=== PATIENT | male | born 1960 | race Caucasian/White ===

== ENCOUNTER 2017-02-01 07:32 | Inpatient (IN) | payer OTHER ==
[~2017-02-01] VITALS: Ht 172.7 cm; Wt 100.4 kg
[2017-02-01] VITALS (44 sets, daily range): BP systolic 115–162; BP diastolic 81–115; PULSE 58–112; TEMP 36.8–37; O2SAT 87–98; Ht 172.7 cm; Wt 100.4 kg
[2017-02-01] MEDS ORDERED: IBUP-103 PO (07:50)
[2017-02-01] MEDS ORDERED: NAPR1TAB48 PO (07:50)
[2017-02-01 08:03] LABS: HEMATOCRIT 44.3 % (42-52); MEAN CELL VOLUME 86.4 fL (80-100); MEAN CORPUSCULAR HEMOGLOBIN 29.8 pg (25-34); MEAN CORPUSCULAR HGB CONC 34.5 g/dl (32-36); MEAN PLATELET VOLUME 11.8 fL (7.4-10.4); PLATELET COUNT 179 K/uL (130-400); RED BLOOD COUNT 5.13 M/uL (4.7-6.1); WHITE BLOOD COUNT 7.72 K/uL (4.8-10.8)
[2017-02-01] MEDS: NITROGLYCERIN 0.4 MG SL PER TAB CHARGE SL PRN ×3 (08:07→08:39)
[2017-02-01] MEDS: METOPROLOL TARTRATE 1 MG/ML VIAL IV STA ×2 (08:09→08:23)
--- NOTE | 2017-02-01 08:17 | EMERGENCY ROOM VISIT NOTE ---
History Report prepared by Hailey: Naa Wilkerson Under the Supervision of: Dr. Yoni Estes M.D. First contact with patient: 07:53 Chief Complaint: CHEST PAIN Stated Complaint: CHEST AND BACK PAIN History of Present Illness The patient is a 56 year old male who presents to the Emergency Room with complaints of constant chest pain for the past 3.5 hours. He woke up early this morning due to central chest pain. His pain radiates straight through into his back, bilateral shoulders, bilateral arms, and up into his neck. He states that his right arm pain is greater than the left. The patient states that he has had similar pain recently and thought that it was due to some back issues he has been dealing with. Typically his pain resolves with Motrin. He took Motrin this morning but states that his pain continued to worsen. He has never experienced the pain radiating up into his neck before. Today he also developed nausea and vomiting secondary to pain. He feels short of breath secondary to pain as well. The patient describes his pain as a pressure in his chest, and he rates his current pain as a 9/10 in severity. He just saw his PCP two days ago and was started on new medication for hypertension and hyperlipidemia. He just started this medication yesterday. The patient denies abdominal pain. He denies any personal history of cardiac or lung problems. He reports a 15 pound weight gain over the past year. Just started on bp and cholesterol meds. no hx of cardiac or lung problems. 15 lb weight gain over the past year. no abdominal pain. 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 Please see Additional Medical History Sheet. Past Medical & Surgical Medical Problems: (1) Acute TX (2) Hyperlipidemia (3) Hypertension (4) NSTEMI (non-ST elevated myocardial infarction) (5) Presence of stent in left circumflex coronary artery (6) Tobacco abuse Surgical Problems: (1) Status post cardiac catheterization Family History No pertinent history stated. Social History Smoking Status: Current Every Day Smoker Marital Status: Housing Status: lives with family Occupation Status: employed Current/Historical Medications Scheduled Ibuprofen Tab (Advil), 400 MG PO UD Naproxen (Naprosyn), 250 MG PO UD Valsartan (Diovan), 80 MG PO DAILY Allergies Coded Allergies: Penicillins (Unverified Allergy, Intermediate, HIVES, 02/01/17) Lactose Intolerance (GI) (Verified Allergy, Mild, gi upset, 02/01/17) Physical Exam Vital Signs Date Time Temp Pulse Resp B/P Pulse Ox O2 Delivery O2 Flow Rate FiO2 02/01/17 11:00 68 16 142/88 96 Room Air 02/01/17 10:55 66 16 138/92 96 Room Air 02/01/17 10:45 66 16 134/97 96 Room Air 02/01/17 08:55 85 20 151/95 95 Nasal Cannula 3.0 02/01/17 08:45 95 Nasal Cannula 3.0 02/01/17 08:41 76 18 161/105 94 Nasal Cannula 3.0 02/01/17 08:39 82 16 151/113 93 Nasal Cannula 3.0 02/01/17 08:31 68 18 156/116 95 Nasal Cannula 3.0 02/01/17 08:26 71 14 158/118 92 Nasal Cannula 3.0 02/01/17 08:23 75 138/116 02/01/17 08:19 83 18 168/110 93 Nasal Cannula 3.0 02/01/17 08:13 82 18 174/117 88 Room Air 02/01/17 08:13 97 Nasal Cannula 3.0 02/01/17 08:00 96 Room Air 02/01/17 07:49 93 02/01/17 07:40 96 Room Air 02/01/17 07:34 96 20 195/124 96 Room Air Physical Exam GENERAL: Patient awake, alert, oriented x 3. Patient follows commands. Patient does not appear toxic. Patient is adequately hydrated and well- nourished. SKIN: No erythema, pallor, cyanosis or rash HEENT: Normal head, pupils equal, reactive to light and accommodation. LUNGS: Clear to auscultation. No wheezes, no rales, no rhonchi. HEART: No murmurs. No gallops. No rubs. Peripheral pulses intact strong and equal bilaterally. ABDOMEN: No masses, no rebound, no hepatomegaly or splenomegaly. EXTREMITIES: No signs of trauma. No pedal or pretibial edema. No calf or thigh tenderness. NEUROLOGIC: Cranial nerves II-XII within normal limits. No gross motor sensory function deficits. Medical Decision & Procedures ER Provider Diagnostic Interpretation: Radiology results as stated below per my review and radiologist interpretation: CHEST ONE VIEW PORTABLE CLINICAL HISTORY: chest pain pain COMPARISON STUDY: None FINDINGS: Moderate cardiomegaly. Prominent pulmonary vasculature. Diaphragms smooth. Calcific angles are sharp. IMPRESSION: Mild congestive failure Electronically signed by: Francisco Fuentes M.D. 02/01/2017 8:47 AM Dictated Date/Time: 02/01/2017 8:46 AM Laboratory Results Test 02/01/17 08:06 02/01/17 08:50 02/01/17 09:27 Bedside Troponin I 1.340 ng/ml (0-0.045) Prothrombin Time 10.7 SECONDS (9.0-12.0) Prothromb Time International Ratio 1.0 (0.9-1.1) Activated Partial Thromboplast Time 29.1 SECONDS (21.0-31.0) Partial Thromboplastin Ratio 1.1 Kaolin Activated Coagulation Time 291 SECONDS (94-140) Date/Time Source Procedure Growth Status 02/01/17 00:00 Nasal MRSA DNA Surveillance Screen - Final Specimen Negative for MRSA by DNA Probe Complete Laboratory results as stated above per my review. Medications Administered Medications (Trade) Dose Ordered Sig/Adrianna Route Start Time Stop Time Status Last Admin Dose Admin Nitroglycerin (Nitrostat Tab) 0.4 mg Q5M PRN SL 02/01/17 08:00 02/01/17 11:23 DC 02/01/17 08:39 0.4 MG Metoprolol Tartrate (Lopressor Iv) 15 mg NOW STAT IV 02/01/17 08:02 02/01/17 08:04 DC 02/01/17 08:23 15 MG Aspirin (Aspirin Chew) 324 mg NOW STAT PO 02/01/17 08:27 02/01/17 08:30 DC 02/01/17 08:38 324 MG Heparin Sodium/ Dextrose (Heparin 25,000 Unit/500ml D5W) 25,000 unit STK-MED ONCE .ROUTE 02/01/17 08:47 02/01/17 08:48 DC 02/01/17 08:55 25,000 UNIT Heparin Sodium (Porcine) (Heparin Sq 5000 Unit/0.5ml) 10,000 unit STK-MED ONCE .ROUTE 02/01/17 08:47 02/01/17 08:48 DC 02/01/17 08:52 7,000 UNIT Heparin Sodium (Porcine) (Heparin Iv Bolus) 10,000 unit STK-MED ONCE .ROUTE 02/01/17 08:58 02/01/17 08:59 DC 02/01/17 08:58 7,000 UNIT Midazolam HCl (Versed Inj) 2 mg STK-MED ONCE .ROUTE 02/01/17 08:58 02/01/17 08:59 DC 02/01/17 08:58 2 MG Fentanyl Citrate (Fentanyl Inj) 100 mcg STK-MED ONCE .ROUTE 02/01/17 08:58 02/01/17 08:59 DC 02/01/17 08:58 100 MCG Furosemide (Lasix Inj) 20 mg NOW STAT IV 02/01/17 09:10 02/01/17 09:11 DC 02/01/17 09:10 20 MG Eptifibatide (Integrilin Inj) 40 mg STK-MED ONCE IV 02/01/17 09:24 02/01/17 09:25 DC 02/01/17 09:24 40 MG Eptifibatide (Integrilin Inj) 75 mg STK-MED ONCE IV 02/01/17 09:24 02/01/17 09:25 DC 02/01/17 09:24 75 MG Atropine Sulfate (Atropine Sulfate) 1 mg STK-MED ONCE .ROUTE 02/01/17 10:29 02/01/17 10:30 DC 02/01/17 10:29 1 MG Ticagrelor (Brilinta Cap) 180 mg STK-MED ONCE PO 02/01/17 10:45 02/01/17 10:46 DC 02/01/17 10:45 180 MG ECG Indication: chest pain Rate (beats per minute): 94 Rhythm: normal sinus Findings: ST depression (in all precordial leads), no ectopy Comparison ECG Date: no prior available ED Course 0753: Past medical records reviewed. The patient was evaluated in room B10. A complete history and physical examination was performed. 0800: Nitroglycerin 0.4 mg SL - PRN 0802: Lopressor 15 mg IV 0825: At this time I spoke with Dr. Samano of [facility] cardiology. We discussed the patient's case and he will come to the ED to evaluate the patient. He advised that the patient get nitroglycerin, aspirin, and heparin. 0827: Heparin Sodium/Dextrose bolus and drip, Aspirin 324 mg PO 0830: I reassessed the patient at this time. He is doing well. I discussed the results and treatment plan with the patient. I answered all pertaining questions that he had. He expressed understanding and verbalized agreement. 0844: I spoke with Dr. Samano in the ED. He is going to take the patient to the cardiac catheterization lab. 0849: A heart alert was called in the ED. 0902: I spoke with Dr. Hutton. We discussed the patients results and treatment plan. The patient will be evaluated by the [facility] for further management. Medical Decision I considered multiple diagnoses including myocardial infarction, chest wall pain , pericarditis, myocarditis, aortic emergencies, pulmonary embolism, congestive heart failure, GI causes, and other significant cardiopulmonary disorders. The patient's history is very concerning for an acute cardiac event. Multiple labs, EKG and imaging were obtained. The patient did have some minimal ST elevation in his inferior leads and ST depressions in his corneal lesions. Troponin returned significantly elevated. I therefore discussed the case with cardiology who also evaluated the patient in the ED. The patient's blood pressure was significantly elevated and was given IV metoprolol. He was also given aspirin and nitroglycerin. The patient was heparinized. Chest x-ray revealed mild congestive failure and Lasix was ordered but the patient left the ED prior to administration of that drug. The patient was sent directly from the ED to the [facility]. Consults Time Called: 08 Consulting Physician: Dr. Samano Returned Call: 0825 At this time I spoke with Dr. Samano of [facility] cardiology. We discussed the patient's case and he will come to the ED to evaluate the patient. He advised that the patient get nitroglycerin, aspirin, and heparin. Additional Consults: Time Called: 08 Consulted Physician: Dr. Samano Returned Call: 0844 Additional Comments: I spoke with Dr. Samano in the ED. He is going to take the patient to the cardiac catheterization lab. Time Called: 0859 Consulted Physician: Dr. Hutton Returned Call: 09 Additional Comments: I spoke with Dr. Tussey. We discussed the patients results and treatment plan. The patient will be evaluated by the [facility] for further management. Impression Primary Impression: Acute myocardial infarction Critical Care I have personally spent greater than 35 minutes of critical care time in the direct management of this patient. This includes bedside care, interpretation of diagnostic studies, and testing, discussion with consultants, patient, and family members, and other required patient management activities. This 35 minutes is in excess of all separately billable procedures. Scribe Attestation The scribe's documentation has been prepared under my direction and personally reviewed by me in its entirety. I confirm that the note above accurately reflects all work, treatment, procedures, and medical decision making performed by me. Departure Information Dispostion Being Evaluated By Hospitalist Referrals No Doctor, Assigned (PCP) Patient Instructions My [facility] Problem Qualifiers Primary Impression: Acute myocardial infarction Myocardial infarction ST status: ST elevation myocardial infarction Involved coronary artery: unspecified coronary artery Qualified Codes: I21.3 - ST elevation (STEMI) myocardial infarction of unspecified site
[2017-02-01 08:19] LABS: BUN/CREATININE RATIO 12.1 (10-20); CALCIUM 9.4 mg/dl (8.5-10.1); POTASSIUM 3.5 mmol/L (3.5-5.1)
[2017-02-01] MEDS ORDERED: ASPIRIN 81 MG CHEW PO STA (08:27)
[2017-02-01] MEDS ORDERED: HEPARIN 25000 UNIT/500 ML D5W ONE (08:47)
[2017-02-01] MEDS ORDERED: HEPARIN SOD 5000 UNIT/0.5 ML CARP ONE (08:47)
--- NOTE | 2017-02-01 08:48 | DIAGNOSTIC IMAGING REPORT ---
CHEST ONE VIEW PORTABLE CLINICAL HISTORY: chest pain pain COMPARISON STUDY: None FINDINGS: Moderate cardiomegaly. Prominent pulmonary vasculature. Diaphragms smooth. Calcific angles are sharp. IMPRESSION: Mild congestive failure Electronically signed by: Francisco Fuentes M.D. 02/01/2017 8:47 AM Dictated Date/Time: 02/01/2017 8:46 AM
[2017-02-01] MEDS ORDERED: NiCARDipine HCL INJ 2.5 MG/ML 10 ML AMP ONE (08:57)
[2017-02-01] MEDS ORDERED: NITROGLYCERIN/D5W 100MCG/ML 20ML SYR ONE (08:58)
[2017-02-01] MEDS ORDERED: MIDAZOLAM HCL 1 MG/ML 2ML VIAL ONE (08:58)
[2017-02-01] MEDS ORDERED: FENTANYL CITRATE INJ 50 MCG/1 ML 2 ML VIAL ONE (08:58)
[2017-02-01] MEDS ORDERED: HEPARIN SOD (PORCINE) 1000 UNIT/ML 10 ML VIAL ONE (08:58)
[2017-02-01] MEDS ORDERED: DVN80 PO (09:01)
[2017-02-01] MEDS ORDERED: FUROSEMIDE 40 MG/4 ML VIAL IV STA (09:10)
[2017-02-01 09:24] LABS: PARTIAL THROMBOPLASTIN RATIO 1.1; PROTHROMBIN TIME (PATIENT) 10.7 SECONDS (9.0-12.0)
[2017-02-01] MEDS ORDERED: EPTIFIBATIDE 0.75 MG/ML 75MG VIAL IV ONE (09:24)
[2017-02-01] MEDS ORDERED: EPTIFIBATIDE 2 MG/ML 10 ML VIAL IV ONE (09:24)
[2017-02-01] MEDS ORDERED: ATROPINE SULFATE 0.1 MG/ML 10 ML SYR ONE (10:29)
[2017-02-01] MEDS ORDERED: TICAGRELOR 90 MG TAB PO ONE (10:45)
[2017-02-01] MEDS ORDERED: ONDANSETRON INJ 2 MG/ML 2 ML VIAL IV PRN (11:15)
[2017-02-01] MEDS ORDERED: ACETAMINOPHEN 325 MG TAB PO PRN (11:15)
[2017-02-01] MEDS ORDERED: EPTIFIBATIDE BOLUS / DRIP IV ONE (11:15)
[2017-02-01] MEDS: SODIUM CHLORIDE 0.9% 1000ML 1,000 ML IV SCH (11:15)
[2017-02-01] MEDS ORDERED: LORAZEPAM INJ 0.5 MG in SYRINGE 0 ML IV PRN (11:15)
[2017-02-01] MEDS ORDERED: ATROPINE SULFATE 0.1 MG/ML 5ML SYR IV PRN (11:15)
--- NOTE | 2017-02-01 11:23 | Procedure Note ---
Pre-Mod Sedation Assessment General Date of Moderate Sedation: February 01, 2017. Vital Signs: Vital Signs Past 12 Hours Date Time Temp Pulse Resp B/P Pulse Ox O2 Delivery O2 Flow Rate FiO2 02/01/17 11:00 68 16 142/88 96 Room Air 02/01/17 10:55 66 16 138/92 96 Room Air 02/01/17 10:45 66 16 134/97 96 Room Air 02/01/17 08:55 85 20 151/95 95 Nasal Cannula 3.0 02/01/17 08:45 95 Nasal Cannula 3.0 02/01/17 08:41 76 18 161/105 94 Nasal Cannula 3.0 02/01/17 08:39 82 16 151/113 93 Nasal Cannula 3.0 02/01/17 08:31 68 18 156/116 95 Nasal Cannula 3.0 02/01/17 08:26 71 14 158/118 92 Nasal Cannula 3.0 02/01/17 08:23 75 138/116 02/01/17 08:19 83 18 168/110 93 Nasal Cannula 3.0 02/01/17 08:13 82 18 174/117 88 Room Air 02/01/17 08:13 97 Nasal Cannula 3.0 02/01/17 08:00 96 Room Air 02/01/17 07:49 93 02/01/17 07:40 96 Room Air 02/01/17 07:34 96 20 195/124 96 Room Air Review Cardiovascular: regular rate, rhythm, no edema, no gallop, no JVD, no murmur, normal peripheral pulses Abdomen: non tender, soft, no organomegaly Lungs: lungs clear Pre-Sedation Airway Assessment Oral Cavity: WNL Able to Visualize Vocal Cords: No Short Thick Neck: No Hx of Sleep Apnea: No Smoking Status: Current Every Day Smoker ASA Classification: Class III Procedure Planning Contraindications-for Mod Sed: None Yes Notes The planned sedation has been discussed with the patient and consent obtained. I have identified the patient, determined the appropriateness of sedation and have assessed the patient immediately prior to the procedure. All medicine(s) and interventions are by my order.
--- NOTE | 2017-02-01 11:24 | Procedure Note ---
Post-Mod Sedation Assessment General Date of Moderate Sedation February 01, 2017. Vital Signs: Vital Signs Past 12 Hours Date Time Temp Pulse Resp B/P Pulse Ox O2 Delivery O2 Flow Rate FiO2 02/01/17 11:00 68 16 142/88 96 Room Air 02/01/17 10:55 66 16 138/92 96 Room Air 02/01/17 10:45 66 16 134/97 96 Room Air 02/01/17 08:55 85 20 151/95 95 Nasal Cannula 3.0 02/01/17 08:45 95 Nasal Cannula 3.0 02/01/17 08:41 76 18 161/105 94 Nasal Cannula 3.0 02/01/17 08:39 82 16 151/113 93 Nasal Cannula 3.0 02/01/17 08:31 68 18 156/116 95 Nasal Cannula 3.0 02/01/17 08:26 71 14 158/118 92 Nasal Cannula 3.0 02/01/17 08:23 75 138/116 02/01/17 08:19 83 18 168/110 93 Nasal Cannula 3.0 02/01/17 08:13 82 18 174/117 88 Room Air 02/01/17 08:13 97 Nasal Cannula 3.0 02/01/17 08:00 96 Room Air 02/01/17 07:49 93 02/01/17 07:40 96 Room Air 02/01/17 07:34 96 20 195/124 96 Room Air Review - Discharge Criteria Vital Signs Stable: Yes Alert/Oriented/Conversant: Yes Returned to Baseline Mental St: Yes Nausea Absent/Minimal: Yes Pain/Discomfort/Absent/Minimal: Yes Normal/Baseline Respirations: Yes Active Bleeding?: No Pt Received D/C Instructions: N/A Prescriptions Given: None Specific Proced. D/C Criteria Distal Pulses Present (Cardiac: Yes Groin site assessed-Card Cath: N/A Voided Prior To Discharge: N/A Discharged Patients Adult Escort/Transportation: N/A
[2017-02-01] MEDS ORDERED: LORAZEPAM 2 MG/ML 1 ML VIAL IV PRN (11:30)
[2017-02-01] MEDS ORDERED: ATORVASTATIN 40 MG TAB PO ONE (11:45)
[2017-02-01 11:50] LABS: BASO % 0.2 %; BASO ABS # 0.02 K/uL (0-0.2); EOS % 0.2 %; HEMATOCRIT 43.1 % (42-52); IG% 0.2 %; LYMPH % 19.9 %; LYMPH ABS # 1.94 K/uL (1.2-3.4); MEAN CELL VOLUME 86.9 fL (80-100); MEAN CORPUSCULAR HEMOGLOBIN 29.4 pg (25-34); MEAN PLATELET VOLUME 11.3 fL (7.4-10.4); MONO % 3.6 %; NEUT % 75.9 %; PLATELET COUNT 181 K/uL (130-400); RED BLOOD COUNT 4.96 M/uL (4.7-6.1); WHITE BLOOD COUNT 9.76 K/uL (4.8-10.8)
[2017-02-01 11:56] LABS: COMPLETE YES; MEAN CORPUSCULAR HGB CONC 33.9 g/dl (32-36)
[2017-02-01] MEDS: EPTIFIBATIDE INJ 75 MG PREMIXED IV SCH ×2 (11:56→18:25)
[2017-02-01 12:10] LABS: BLOOD UREA NITROGEN 10 mg/dl (7-18); BUN/CREATININE RATIO 12.3 (10-20); CALCIUM 8.7 mg/dl (8.5-10.1); CARBON DIOXIDE 31 mmol/L (21-32); CHLORIDE 106 mmol/L (98-107); CREATININE 0.81 mg/dl (0.60-1.40); GLUCOSE 100 mg/dl (70-99); POTASSIUM 4.1 mmol/L (3.5-5.1); SODIUM 143 mmol/L (136-145)
--- NOTE | 2017-02-01 12:12 | [facility] Post Operative Brief Note ---
Preliminary Procedure Note Procedure Date February 01, 2017. Pre-Procedure Diagnosis STEMI AUC Score 9 Post-Procedure Diagnosis Severe CAD, Successful PCI, Decreased LV Systolic Function, Elevated Intracardiac Pressures Procedure(s) Performed Coronary Angiography, Left Heart Cath, LV Angiography, PTCA, Bare Metal Stent Diabetic Educator Dr. Kurtz Automobile Relocation Engineer(s) Melonie Cantu, RAMIRO Estimated Blood Loss 55 ml Medication(s) Atropine, Fentanyl, Heparin, Integrilin, Nicardipine (Intra-arterial and intracoronary), Versed, Lidocaine 1% Ticagrelor 180 mg PO post PCI Preliminary Findings Clinical indications: Acute inferolateral myocardial infarction. Catheterization site: 6 Trin[place] glide sheath slender right radial artery. Equipment: 6 Trin[place]adian brachial 3.5 diagnostic catheter, 6 Trin[place]adian EBU 3.75 guide catheter, 6 Trin[place] EBU 4.0 guide catheter, Travel Desiya [place] XT J-TIP guidewire, Patel Trek 3 x 15 millimeter balloon dilatation catheter, Patel Ultra Rx 4.5 x 18 millimeter bare metal stent, Travel Desiya Integrity over the wire 4 x 9 millimeter bare metal stent, Revenew Euphora 5 x 15 millimeter balloon dilatation catheter, 6 Trin[place] pigtail diagnostic catheter. Protocol: Right and left coronary angiography was 1st performed the brachial 3.5 diagnostic catheter. This revealed a subtotal mid left circumflex occlusion. MARY 2 flow into the distal left circumflex. It was then attempted to cannulate the left coronary artery with the 6 Trin[place] EBU 3.75 guide catheter. This catheter would repeatedly disengage from the left main. It was exchanged for the 6 Trin[place] EBU 4.0 guide catheter. Total of 7 balloon inflations were then performed to the mid left circumflex with the Trek balloon to maximum inflation pressure of 14 atmospheres and maximum duration of 15 seconds. The Ultra Rx 4.5 x 18 millimeter stent was then deployed in the mid circumflex. It was deployed initially at a pressure of 10 atmospheres for 45 seconds. The stent delivery balloon was reinflated to a pressure of 14 atmospheres for duration of 20 seconds. An integrity 4 x 9 millimeter stent was then deployed distal to the 1st stent in overlapping fashion. Deployed at 15 atmospheres for 45 seconds. Entire stented region was then post dilated with the noncompliant balloon. A total of 4 balloon inflations performed to a maximum pressure of 20 atmospheres and maximum duration of 20 seconds. Follow- up angiography was then performed with the guidewire in place and guidewire withdrawn. Performed from orthogonal projections. Left heart catheterization and left ventricular angiography was then performed from the 30 degree right anterior oblique projection using a hand injection of contrast dye. Prior to intervention the patient was given intravenous heparin and Integrilin. A therapeutic activated clotting time was documented. Following reperfusion left circumflex he developed sinus bradycardia and junctional bradycardia. he was given 0.5 milligrams of intravenous atropine. He was given a bolus of normal saline. Following the administration of the atropine and heart rate ely and he returned to sinus rhythm. No significant ventricular arrhythmias. Occasional premature ventricular beats. Following reperfusion of the left circumflex his chest discomfort resolved. Hemostasis: Terumo TR band. Complications: None. Findings: Fluoroscopy revealed coronary calcifications. The coronary circulation was right dominant. The left main coronary artery was a short very large caliber vessel giving rise to large caliber left anterior descending left circumflex coronary arteries. The left main had no obstructive disease. The very proximal left circumflex gave rise to a long small caliber bifurcating ramus type branch. This vessel had minor luminal irregularities with 0-10 percent luminal diameter narrowing. The proximal left circumflex had mild atherosclerotic disease with 10-20 percent luminal diameter narrowing. The early mid circumflex had a 30-40 percent eccentric stenosis. This was then followed by a subtotal occlusion. There was faint visualization of an aneurysmal segment just past the site of the subtotal occlusion. MARY 2 flow into the distal left circumflex. MARY 1 flow into a left circumflex marginal arising from the mid circumflex. Following balloon angioplasty MARY 3 flow was established into the left circumflex marginal as well as the distal left circumflex. The aneurysmal segment in the mid circumflex was well visualized. 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 There was pooling of contrast inside of the aneurysmal segment. Just prior to the aneurysm there was a residual 75 - 80 percent stenosis. Following deployment of the 2 stents and post stent high- pressure noncompliant balloon inflations to residual stenosis in the mid circumflex at the site of the stents was 0-10 percent. Immediately following the stent there was the aneurysmal segment. There continued to be pulling of contrast inside of the aneurysmal segment. Just after the aneurysmal segment circumflex gave rise to a long bifurcating small to medium caliber marginal artery which had minor mid and distal luminal irregularities with 0-10 percent narrowing. Following the marginal circumflex continues on in the atrioventricular groove is a small caliber vessel. Distal circumflex gave rise to a very small caliber posterior lateral branch. This vessel had mild atherosclerotic disease. The distal circumflex following the origin of the bifurcating marginal had a 30 percent stenosis. The very distal circumflex gave rise to a left atrial branch. Following stent deployment there was no conclusive evidence of dissection combo residual thrombus, perforation, or distal embolic event. The proximal LAD had minor irregularities with 0-20 percent luminal diameter narrowing. The LAD then gave rise to a long small caliber 1st diagonal artery which had a 90 percent proximal stenosis. MARY 2 flow into the diagonal. Following the diagonal the early mid LAD had sequential eccentric 50 percent stenoses. The mid LAD gave rise to very small caliber 2nd and 3rd diagonal arteries. Remainder of the mid and distal LAD had diffuse mild atherosclerotic disease with 10-20 percent luminal diameter narrowing. The distal LAD terminates at the apex of the left ventricle as a small caliber vessel. The right coronary artery was a medium caliber vessel. Proximal 20 percent stenosis. The mid segment had an eccentric 50 percent stenosis. Following the origin of a prominent right ventricular branch the latter mid RCA had an eccentric 50 percent stenosis. The distal RCA had minor luminal irregularities. Distal RCA gave rise to a prominent acute marginal artery, a long small caliber posterior descending artery, and a long small caliber posterolateral artery. These vessels had minor luminal irregularities. Left ventricular angiography performed from the 30 degree right anterior oblique projection revealed the diaphragmatic segment to be akinetic. Posterobasal segment was poorly visualized. The apex and anterolateral segments appeared hypokinetic. The anterobasal segments contracted normally. Estimated left ventricular ejection fraction 40 percent. No mitral regurgitation was visualized. Plan: The patient was given a loading dose of ticagrelor 180 milligrams post PCI. Should remain on dual antiplatelet therapy for at least 1 year. Aspirin therapy indefinitely. He will be maintained on losartan therapy. Beta-eli and statin therapy will be started. Will remain on intravenous Integrilin for 18 hours. Serial electrocardiograms, cardiac enzymes, and labs. Referral to smoking cessation therapy. Echocardiogram to further assess left ventricular systolic function and wall motion. At this time would recommend medical management of his residual coronary artery disease. The patient will require cardiology follow-up on a return to his home town. Patient is currently visiting the [place] area. Recommendations Medical therapy and/or Counseling, PCI without planned CABG Specimens None Fluids (cc crystalloids) 500 Drains none Anesthesia IV versed,fentanyl. Lidocaine 1 % for local. Procedural Complication(s) None Disposition ICU
[2017-02-01 12:30] LABS: CHOLESTEROL 248 mg/dl (0-200); CHOLESTEROL/HDL RATIO 5.6; CKMB/CK RATIO 11.4 (0-3.0); HDL CHOLESTEROL 44 mg/dl; TRIGLYCERIDES 87 mg/dl (0-150); VERY LOW DENSITY LIPOPROT CALC 17 mg/dl
--- NOTE | 2017-02-01 12:54 | Critical Care Consultation ---
Critical Care Consultation Date of Consultation: February 01, 2017. Attending Physician: Nandini Hutton MD Reason for Consultation: Heart Alert S/p cardiac catheterization with stenting; on Integrilin infusion History of Present Illness This is a pleasant 56-year-old male past medical history of hypertension and hypercholesterolemia who presented to the emergency department with sudden onset sternal chest pain in the early hours of the morning. He states that he has a bad back which is ongoing for many years. Typically takes Motrin which she says helps. He notes that the pain occasionally radiates to his chest but this typically alleviated with Motrin. Last night he states that he was around the house when his back pain came on. He took 2 Motrin and states that it alleviated the back pain. He was then able to go to sleep. He was awoken at approximately 4 AM with a combination of his back pain as well as sternal pressure going to both shoulders. In addition he notes that the discomfort radiated up into his jaw, though did not go down into the arms. Denies having any shortness of breath, palpitations, lightheadedness, dizziness or lower extremity swelling. He tried to take Motrin think that would help but after 2 hours the pain was not alleviated and he was brought to the ER by his daughter for further evaluation. In the ER and EKG showed normal sinus rhythm with lateral ST and T-wave changes. Initial troponin was positive at 1.3. He was initially treated with ASA 324 mg, nitroglycerin 0.4 mg, IV Lopressor 50 mg, and was started on a heparin infusion. Cardiology was consulted who evaluated the patient in the ED and a heart alert was called. The patient was brought down to the cardiac catheterization lab for further intervention. The patient did have 2 stents deployed to the left circumflex artery, and was started on an Integrilin infusion. He was also given 20 mg of IV Lasix for pulmonary congestion noted on chest-x ray. He was transported to the intensive care unit in stable condition. Regarding other risk factors, the patient has history of hypertension hypercholesterolemia and was only recently started on medications within the past month by his primary care provider. He does not have a history of diabetes. He is a 30+ year pack a day smoker. He does note that his mother had an OK in her mid 40s. Up until today, the patient did not have any known history of coronary artery disease. Past Medical/Surgical History Hypertension Hypercholesterolemia Family History OK - mother in mid 40s Social History Smoking Status: Current Every Day Smoker Smokeless Tobacco Use: No Alcohol Use: none Drug Use: none Marital Status: Housing Status: lives with family Occupation Status: employed Allergies Coded Allergies: Penicillins (Unverified Allergy, Intermediate, HIVES, 02/01/17) Lactose Intolerance (GI) (Verified Allergy, Mild, gi upset, 02/01/17) Home Medications Scheduled Ibuprofen Tab (Advil), 400 MG PO UD Naproxen (Naprosyn), 250 MG PO UD Valsartan (Diovan), 80 MG PO DAILY Current Inpatient Medications Current Inpatient Medications Medications (Trade) Dose Ordered Sig/Adrianna Route Start Time Stop Time Status Last Admin Dose Admin Sodium Chloride (Nss 1000ml) 1,000 ml @ 15 mls/hr Q24H IV 02/01/17 11:15 03/03/17 11:14 Atropine Sulfate (Atropine Sulfate 0.1MG/Ml Inj) 0.5 mg ONE PRN IV 02/01/17 11:15 03/03/17 11:14 Ondansetron HCl (Zofran Inj) 4 mg Q6H PRN IV 02/01/17 11:15 03/03/17 11:14 Aspirin (Ecotrin Tab) 81 mg QAM PO 02/02/17 09:00 03/04/17 08:59 Atorvastatin Calcium (Lipitor Tab) 80 mg QAM PO 02/02/17 09:00 03/04/17 08:59 Metoprolol Tartrate (Lopressor Tab) 25 mg Q12 PO 02/01/17 21:00 03/03/17 20:59 Acetaminophen (Tylenol Tab) 650 mg Q4H PRN PO 02/01/17 11:15 03/03/17 11:14 Morphine Sulfate 2 mg 2 mg Q5M PRN IV 02/01/17 11:15 02/15/17 11:14 Lorazepam/Syringe (Ativan Inj/ Syringe) 0.25 ml @ 1 mls/min Q6H PRN IV 02/01/17 11:15 03/03/17 11:14 Lorazepam (Ativan Tab) 0.5 mg Q6H PRN PO 02/01/17 11:15 03/03/17 11:14 Pantoprazole Sodium (Protonix Tab) 40 mg DAILY PO 02/02/17 09:00 03/04/17 08:59 Valsartan (Diovan Tab) 80 mg DAILY PO 02/02/17 09:00 03/04/17 08:59 Ticagrelor (Brilinta Cap) 90 mg BID PO 02/01/17 21:00 03/03/17 20:59 Lorazepam 0.5 mg 0.5 mg Q6H PRN IV 02/01/17 11:30 03/03/17 11:29 Eptifibatide (Integrilin Inj) 100 ml @ 17 mls/hr Q5H53M IV 02/01/17 11:30 02/02/17 04:00 02/01/17 11:56 17 MLS/HR Miscellaneous (Stop Order) 1 ea TODAY@0400 ONCE N/A 02/02/17 04:00 02/02/17 04:01 Review of Systems A 10 point review of systems was otherwise negative unless stated above in the history of present illness Physical Exam Date Time Temp Pulse Resp B/P Pulse Ox O2 Delivery O2 Flow Rate FiO2 02/01/17 12:06 93 19 141/110 96 Nasal Cannula 4.0 02/01/17 12:00 Nasal Cannula 4.0 02/01/17 12:00 93 19 141/110 96 Nasal Cannula 4.0 02/01/17 11:51 69 22 128/89 94 Nasal Cannula 4.0 02/01/17 11:36 76 17 125/92 92 Nasal Cannula 4.0 02/01/17 11:21 67 17 125/92 91 Nasal Cannula 4.0 02/01/17 11:21 90 Nasal Cannula 4.0 02/01/17 11:21 58 17 125/92 91 Nasal Cannula 4.0 02/01/17 11:00 68 16 142/88 96 Room Air 02/01/17 10:55 66 16 138/92 96 Room Air 02/01/17 10:45 66 16 134/97 96 Room Air 02/01/17 08:55 85 20 151/95 95 Nasal Cannula 3.0 02/01/17 08:45 95 Nasal Cannula 3.0 02/01/17 08:41 76 18 161/105 94 Nasal Cannula 3.0 02/01/17 08:39 82 16 151/113 93 Nasal Cannula 3.0 02/01/17 08:31 68 18 156/116 95 Nasal Cannula 3.0 02/01/17 08:26 71 14 158/118 92 Nasal Cannula 3.0 02/01/17 08:23 75 138/116 02/01/17 08:19 83 18 168/110 93 Nasal Cannula 3.0 02/01/17 08:13 82 18 174/117 88 Room Air 02/01/17 08:13 97 Nasal Cannula 3.0 02/01/17 08:00 96 Room Air 02/01/17 07:49 93 02/01/17 07:40 96 Room Air 02/01/17 07:34 96 20 195/124 96 Room Air General Appearance: well-appearing, WD/WN Head: normocephalic, atraumatic Eyes: PERRLA, EOMI ENT: normal ear exam, normal nasal exam, normal mouth exam Neck: no tenderness, trachea midline, supple Respiratory: breath sounds normal, clear to auscultation Cardiovasular: normal S1S2, no murmur, no rub Abdomen: non tender, normal bowel sounds, no rebound Back: no midline tenderness, no CVA tenderness Upper Extremities: no edema Lower Extremities: no edema Neuro: alert, oriented x 3 Psychiatric: normal affect Laboratory Results Last 24 Hours Test 02/01/17 07:45 02/01/17 08:06 02/01/17 08:50 02/01/17 09:27 White Blood Count 7.72 K/uL Red Blood Count 5.13 M/uL Hemoglobin 15.3 g/dL Hematocrit 44.3 % Mean Corpuscular Volume 86.4 fL Mean Corpuscular Hemoglobin 29.8 pg Mean Corpuscular Hemoglobin Concent 34.5 g/dl RDW Standard Deviation 42.4 fL RDW Coefficient of Variation 13.3 % Platelet Count 179 K/uL Mean Platelet Volume 11.8 fL Sodium Level 140 mmol/L Potassium Level 3.5 mmol/L Chloride Level 105 mmol/L Carbon Dioxide Level 26 mmol/L Anion Gap 9.0 mmol/L Blood Urea Nitrogen 12 mg/dl Creatinine 1.00 mg/dl Est Creatinine Clear Calc Drug Dose 96.7 ml/min Estimated GFR () 97.1 Estimated GFR (Non- 83.8 BUN/Creatinine Ratio 12.1 Random Glucose 120 mg/dl Calcium Level 9.4 mg/dl Bedside Troponin I 1.340 ng/ml Prothrombin Time 10.7 SECONDS Prothromb Time International Ratio 1.0 Activated Partial Thromboplast Time 29.1 SECONDS Partial Thromboplastin Ratio 1.1 Kaolin Activated Coagulation Time 291 SECONDS Test 02/01/17 11:01 02/01/17 11:43 Creatine Kinase MB Ratio White Blood Count 9.76 K/uL Red Blood Count 4.96 M/uL Hemoglobin 14.6 g/dL Hematocrit 43.1 % Mean Corpuscular Volume 86.9 fL Mean Corpuscular Hemoglobin 29.4 pg Mean Corpuscular Hemoglobin Concent 33.9 g/dl Platelet Count 181 K/uL Mean Platelet Volume 11.3 fL Neutrophils (%) (Auto) 75.9 % Lymphocytes (%) (Auto) 19.9 % Monocytes (%) (Auto) 3.6 % Eosinophils (%) (Auto) 0.2 % Basophils (%) (Auto) 0.2 % Neutrophils # (Auto) 7.41 K/uL Lymphocytes # (Auto) 1.94 K/uL Monocytes # (Auto) 0.35 K/uL Eosinophils # (Auto) 0.02 K/uL Basophils # (Auto) 0.02 K/uL RDW Standard Deviation 42.8 fL RDW Coefficient of Variation 13.5 % Immature Granulocyte % (Auto) 0.2 % Immature Granulocyte # (Auto) 0.02 K/uL Sodium Level 143 mmol/L Potassium Level 4.1 mmol/L Chloride Level 106 mmol/L Carbon Dioxide Level 31 mmol/L Anion Gap 6.0 mmol/L Blood Urea Nitrogen 10 mg/dl Creatinine 0.81 mg/dl Est Creatinine Clear Calc Drug Dose 119.4 ml/min Estimated GFR () 115.1 Estimated GFR (Non- 99.4 BUN/Creatinine Ratio 12.3 Random Glucose 100 mg/dl Calcium Level 8.7 mg/dl Diagnostic Results Full cardiac catheterization report still pending CHEST ONE VIEW PORTABLE CLINICAL HISTORY: chest pain pain COMPARISON STUDY: None FINDINGS: Moderate cardiomegaly. Prominent pulmonary vasculature. Diaphragms smooth. Calcific angles are sharp. IMPRESSION: Mild congestive failure Assessment & Plan (1) NSTEMI (non-ST elevated myocardial infarction) (2) Status post cardiac catheterization (3) Presence of stent in left circumflex coronary artery (4) Hypertension (5) Hyperlipidemia (6) Tobacco abuse NEUROLOGICAL - GCS 15; CAM-ICU negative; RASS 0 CARDIAC - BP: 130-150 systolic; Goal MAP > 65 - Vasopressor support: None - IV Fluids: None Status post cardiac catheterization with stenting to left circumflex artery - Cardiology is been consulted, recommendations are appreciated - The patient has been started on appropriate secondary prevention medications ASA 81 mg daily Metoprolol tartrate 25 mg twice a day Atorvastatin 80 mg every morning Valsartan 80 mg Ticagrelor 90 mg by mouth twice a day - Patient will require a pneumococcal vaccine per CDC guidelines - Monitor troponin every 8 hours until peak - Echocardiogram pending - Smoking cessation counseling has been ordered Hypertension - Continue valsartan and start metoprolol Hypercholesterolemia - Start atorvastatin - Per ACC/AHA guidelines, the patient is being treated for plaque stabilization and not results of lipid panel RESPIRATORY - RR: 16-20 SpO2: > 92% Does not have a home oxygen requirement, needs to be weaned down as tolerated to room air Chronic tobacco abuse - We will order smoking cessation education Pulmonary congestion on chest x-ray - Received 20 g IV Lasix prior to the ICU - Repeat chest x-ray in the morning GASTROINTESTINAL - Diet: Resume diet, AHA heart healthy, and low-sodium diet - GI Prophylaxis: Protonix 40 mg PO daily - Bowel regimen: Monitor for BM RENAL//ENDOCRINE - Monitor daily fluid balance - Cr: 1.0 No previous hospitalizations therefore baseline is not available at this time ; trend daily - Electrolytes: No gross electrolyte abnormalities - IV Fluids: None, the patient is tolerating by mouth without difficulty - BSG: Not been routinely checked, we will check an HbA1c to screen for diabetes mellitus HEMATOLOGY/INFECTIOUS DISEASE - Afebrile, no leukocytosis - Hb/Hct 14.6/43.1; no baseline available, follow daily - DVT Prophylaxis: Currently on an Integrilin infusion SCDs CODE STATUS - Full Code - Patient designates his Janessa to be is substitute decision-maker if he cannot make decisions for himself DISPOSITION - OT/PT: Not indicated at this time, patient has good baseline and with her status, expect discharge home when medically stable - ICU for post cardiac catheterization monitoring an Integrilin infusion Resident Physician Supervision Note: Dr. Gustafson was resident physician during care of patient. I separately evaluated patient and did history and exam. I discussed the case with the resident and generally agree with the findings and plan. Documented By: Scot Pennington DO
[2017-02-01] MEDS ORDERED: PNEUMOCOCCAL ADMINISTRATION CHARGE ONE (13:00)
--- NOTE | 2017-02-01 13:25 | History and Physical ---
History & Physical Date & Time of Service: February 01, 2017 at 13:20 Chief Complaint: Acute Mi Primary Care Physician: No Doctor, Assigned History of Present Illness Source: patient, family This is a 56 yo M with PMHx of chronic tobacco use with 1ppd x 30 years, hypertension and hypercholesterolemia and diverticulitis who presented to the ER with sudden onset sternal chest pain at approximately 4 am. The patient has chronic back pain which occasionally radiates to his chest, for which he uses motrin with adequate relief. Last evening around 6:30 pm he experienced this back pain and took 2 Motrin and states that it alleviated the back pain and went to sleep. He was awoken at approximately 4 AM with a combination of his back pain as well as substernal pressure radiating to both shoulders and into his jaw. Denies having any shortness of breath, palpitations, lightheadedness, dizziness or lower extremity swelling. He took 2 Motrin tablets and a naproxen 220 mg tablet, but this did not alleviate his symptoms. After 2 hours the pain was not alleviated and he was brought to the ER by his daughter for further evaluation. The patient was seen and examined in the ICU. He is resting comfortably in bed , his daughter and her boyfriend present at bedside. The patient is currently status post cardiac cath with stenting to the left circumflex artery. He denies any acute problems, pain or soreness. With that his chest pain he initially had at 4 AM it completely resolved. He has tolerated a normal diet without any difficulty. Last bowel movement was this afternoon. And he is agreeable to quit smoking. Past Medical/Surgical History Medical Problems: (1) Hyperlipidemia Status: Chronic (2) Hypertension Status: Chronic Diverticulitis Chronic Tobacco Abuse Social History Smoking Status: Current Every Day Smoker Smokeless Tobacco Use: No Alcohol Use: none Drug Use: none Marital Status: Occupational Status: employed Allergies Coded Allergies: Penicillins (Unverified Allergy, Intermediate, HIVES, 02/01/17) Lactose Intolerance (GI) (Verified Allergy, Mild, gi upset, 02/01/17) Home Medications Scheduled Ibuprofen Tab (Advil), 400 MG PO UD Naproxen (Naprosyn), 250 MG PO UD Valsartan (Diovan), 80 MG PO DAILY Review of Systems Constitutional: No fever, sweats or chills Eyes: No diplopia, no worsening or blurred vision ENT: normal hearing, no trouble swallowing Respiratory: No cough, sputum, dyspnea at rest or on exertion Cardiovascular: No chest pain, tightness or palpitations Abdomen: No pain, nausea, vomiting, diarrhea or constipation Musculoskeletal: No joint pain, calf pain, swelling Neurologic: No weakness, numbness/tingling, or balance problems Psychiatric: No anxiety or depression Skin: No rash or itch Physical Exam Vital Signs Date Time Temp Pulse Resp B/P Pulse Ox O2 Delivery O2 Flow Rate FiO2 02/01/17 13:06 80 21 134/96 98 Nasal Cannula 4.0 02/01/17 12:36 67 17 138/95 97 Nasal Cannula 4.0 02/01/17 12:06 93 19 141/110 96 Nasal Cannula 4.0 02/01/17 12:00 Nasal Cannula 4.0 02/01/17 12:00 93 19 141/110 96 Nasal Cannula 4.0 02/01/17 11:51 69 22 128/89 94 Nasal Cannula 4.0 02/01/17 11:36 76 17 125/92 92 Nasal Cannula 4.0 02/01/17 11:21 67 17 125/92 91 Nasal Cannula 4.0 02/01/17 11:21 90 Nasal Cannula 4.0 02/01/17 11:21 58 17 125/92 91 Nasal Cannula 4.0 02/01/17 11:00 68 16 142/88 96 Room Air 02/01/17 10:55 66 16 138/92 96 Room Air 02/01/17 10:45 66 16 134/97 96 Room Air 02/01/17 08:55 85 20 151/95 95 Nasal Cannula 3.0 02/01/17 08:45 95 Nasal Cannula 3.0 02/01/17 08:41 76 18 161/105 94 Nasal Cannula 3.0 02/01/17 08:39 82 16 151/113 93 Nasal Cannula 3.0 02/01/17 08:31 68 18 156/116 95 Nasal Cannula 3.0 02/01/17 08:26 71 14 158/118 92 Nasal Cannula 3.0 02/01/17 08:23 75 138/116 02/01/17 08:19 83 18 168/110 93 Nasal Cannula 3.0 02/01/17 08:13 82 18 174/117 88 Room Air 02/01/17 08:13 97 Nasal Cannula 3.0 02/01/17 08:00 96 Room Air 02/01/17 07:49 93 02/01/17 07:40 96 Room Air 02/01/17 07:34 96 20 195/124 96 Room Air General: awake, alert, no apparent distress Head: Normocephalic, atraumatic ENT: PERRL, EOMI, no pharyngeal exudate, mucous membranes moist Chest: Faint expiratory wheeze throughout, on 2 L NC, no wheezes or rales Cardiac: Regular rate and rhythm, no murmur, no JVD, normal peripheral pulses, good capillary refill Abdominal: NABS x 4 quadrants, soft, nontender to palpation, no rebound, guarding or tenderness Extremities: Normal inspection, no peripheral edema or erythema, calfs nontender to palpation, Clear pressure bandage over R wrist s/p cath Psych: Normal mood and affect Neuro: AAO x 3, strength intact bilaterally and related 5/5, no motor deficits, speech is clear, no peripheral sensory deficits Diagnostics Laboratory Results Results Past 24 Hours Test 02/01/17 07:45 02/01/17 08:06 02/01/17 08:50 02/01/17 09:27 Range/Units White Blood Count 7.72 4.8-10.8 K/uL Red Blood Count 5.13 4.7-6.1 M/uL Hemoglobin 15.3 14.0-18.0 g/dL Hematocrit 44.3 42-52 % Mean Corpuscular Volume 86.4 80-100 fL Mean Corpuscular Hemoglobin 29.8 25-34 pg Mean Corpuscular Hemoglobin Concent 34.5 32-36 g/dl RDW Standard Deviation 42.4 36.4-46.3 fL RDW Coefficient of Variation 13.3 11.5-14.5 % Platelet Count 179 130-400 K/uL Mean Platelet Volume 11.8 7.4-10.4 fL Sodium Level 140 136-145 mmol/L Potassium Level 3.5 3.5-5.1 mmol/L Chloride Level 105 98-107 mmol/L Carbon Dioxide Level 26 21-32 mmol/L Anion Gap 9.0 3-11 mmol/L Blood Urea Nitrogen 12 7-18 mg/dl Creatinine 1.00 0.60-1.40 mg/dl Est Creatinine Clear Calc Drug Dose 96.7 ml/min Estimated GFR () 97.1 Estimated GFR (Non- 83.8 BUN/Creatinine Ratio 12.1 10-20 Random Glucose 120 70-99 mg/dl Calcium Level 9.4 8.5-10.1 mg/dl Bedside Troponin I 1.340 0-0.045 ng/ml Prothrombin Time 10.7 9.0-12.0 SECONDS Prothromb Time International Ratio 1.0 0.9-1.1 Activated Partial Thromboplast Time 29.1 21.0-31.0 SECONDS Partial Thromboplastin Ratio 1.1 Kaolin Activated Coagulation Time 291 94-140 SECONDS Test 02/01/17 11:43 02/01/17 13:12 Range/Units White Blood Count 9.76 4.8-10.8 K/uL Red Blood Count 4.96 4.7-6.1 M/uL Hemoglobin 14.6 14.0-18.0 g/dL Hematocrit 43.1 42-52 % Mean Corpuscular Volume 86.9 80-100 fL Mean Corpuscular Hemoglobin 29.4 25-34 pg Mean Corpuscular Hemoglobin Concent 33.9 32-36 g/dl Platelet Count 181 130-400 K/uL Mean Platelet Volume 11.3 7.4-10.4 fL Neutrophils (%) (Auto) 75.9 % Lymphocytes (%) (Auto) 19.9 % Monocytes (%) (Auto) 3.6 % Eosinophils (%) (Auto) 0.2 % Basophils (%) (Auto) 0.2 % Neutrophils # (Auto) 7.41 1.4-6.5 K/uL Lymphocytes # (Auto) 1.94 1.2-3.4 K/uL Monocytes # (Auto) 0.35 0.11-0.59 K/uL Eosinophils # (Auto) 0.02 0-0.5 K/uL Basophils # (Auto) 0.02 0-0.2 K/uL RDW Standard Deviation 42.8 36.4-46.3 fL RDW Coefficient of Variation 13.5 11.5-14.5 % Immature Granulocyte % (Auto) 0.2 % Immature Granulocyte # (Auto) 0.02 0.00-0.02 K/uL Sodium Level 143 136-145 mmol/L Potassium Level 4.1 3.5-5.1 mmol/L Chloride Level 106 98-107 mmol/L Carbon Dioxide Level 31 21-32 mmol/L Anion Gap 6.0 3-11 mmol/L Blood Urea Nitrogen 10 7-18 mg/dl Creatinine 0.81 0.60-1.40 mg/dl Est Creatinine Clear Calc Drug Dose 119.4 ml/min Estimated GFR () 115.1 Estimated GFR (Non- 99.4 BUN/Creatinine Ratio 12.3 10-20 Random Glucose 100 70-99 mg/dl Calcium Level 8.7 8.5-10.1 mg/dl Total Creatine Kinase 3147 39-308 U/L Creatine Kinase MB 360.2 0.5-3.6 ng/ml Creatine Kinase MB Ratio 11.4 0-3.0 Troponin I 134.000 0-0.045 ng/ml Triglycerides Level 87 0-150 mg/dl Cholesterol Level 248 0-200 mg/dl HDL Cholesterol 44 mg/dl LDL Cholesterol Direct 198 mg/dl LDL Cholesterol, Calculated mg/dl VLDL Cholesterol, Calculated 17 mg/dl Cholesterol/HDL Ratio 5.6 Microbiology Results 02/01/17 MRSA DNA Surveillance Screen, Received Pending Impression Assessment and Plan 56 yo M with PMHx of hypertension, hyperlipidemia, and diverticulitis, and now s/p cardiac cath with stenting to the LCA on 02/02/16 for NSTEMI. Status post cardiac catheterization with stenting to left circumflex artery for NSTEMI - Cardiology is been consulted, appreciate recs - Admitted to the ICU - appreciate assistance with this patient - ASA 81 mg daily - Metoprolol tartrate 25 mg twice a day - Atorvastatin 80 mg every morning - Valsartan 80 mg - Ticagrelor 90 mg by mouth twice a day - Patient will require a pneumococcal vaccine per CDC guidelines - Monitor troponin every 8 hours until peak - Echocardiogram ordered, has not yet been completed - Smoking cessation provided at bedside, patient is agreeable quitting. Hypertension - Continue valsartan and start metoprolol as above Hypercholesterolemia - Start atorvastatin 80 mg qd DVT ppx: teds, scds, ticagrelor CODE STATUS: FULL CODE Disposition: From home, likely can discharge within 24 hours. Patient will require set up with cardiology hometown. I agree with PA assessment and plan LAbs and vitals reviewed EKG reviewed HEart code alerted Pt brought to laboratory chemist for intervention with stenting to LAD Further post cath intervention.meds per cardio Hemodynamically stable Cream Dumper consulted Admit to ICU for further monitoring Advanced Directives Existing Living Will: Yes Existing Power of Hospital Insurance Representative: Yes VTE Prophylaxis VTE Risk Assessment Done? Y/N: Yes Risk Level: Moderate
--- NOTE | 2017-02-01 16:10 | CARDIOLOGY CONSULTATION ---
DATE OF CONSULTATION: 02/01/2017 REFERRING PHYSICIAN: Yoni Estes MD CHIEF COMPLAINT: Chest pain. HISTORY OF PRESENT ILLNESS: Mr. Ferdinand Finnegan is a 56-year-old gentleman without a known history of cardiac disease and who awoke this morning approximately 4:00 a.m. with symptoms of back and chest discomfort. The patient commonly has some symptoms of back pain, but in this case, he had some associated chest pressure. He describes this as "someone was standing on chest". This also involved radiation to both arms, a sense of nausea and eventual vomiting. The patient also reported an element of diaphoresis. He does not report overt dyspnea. As the symptoms are reminiscent of his typical chest discomfort, the patient took nonsteroidals without significant improvement. Based on the persistent nature of his symptoms, the patient presented to [facility] for an additional evaluation. At the time of the interview, the patient states that he has some mild discomfort across the precordium which is improved with nitroglycerin. He continues to have symptoms of back discomfort that are unchanged. The radiation to the left arm appears to have resolved. He denies significant dyspnea at this time. He no longer has nausea. In general, the patient is an active individual who is able to perform routine exertion without limiting symptoms of dyspnea or chest discomfort. He denies any history of palpitations, lightheadedness, dizziness or recent syncope. PAST MEDICAL HISTORY: 1. Hypertension. This appears to be a new diagnosis. The patient was just started on a medication yesterday and he is not aware of this medications name. 2. Diverticulosis. 3. Gastroesophageal reflux disease. 4. Tobacco abuse. PAST SURGICAL HISTORY: 1. Partial colectomy for diverticulosis. 2. Inguinal hernia repair. OUTPATIENT MEDICATIONS: 1. Aciphex. 2. New blood pressure medication unknown type. MEDICAL ALLERGIES: PENICILLIN. SOCIAL HISTORY: The patient is currently employed in the construction business. He has an extensive tobacco abuse and is an active smoker. He denies significant alcohol use or abuse. FAMILY HISTORY: Not significant for premature coronary artery disease. REVIEW OF SYSTEMS: A complete 10-system review of systems was performed and the pertinent positives noted in the history of present illness. The patient did not report any recent constitutional symptoms such as fevers or chills. He had no change in his bowel habits. He did have colonoscopy done last week which was complicated by some apnea during sedation. PHYSICAL EXAMINATION: GENERAL: The patient appeared to be only in mild distress. He is alert and oriented. His mood and affect appeared normal. He answered all questions appropriately. VITAL SIGNS: Include blood pressure 151/95 with pulse of 85. HEENT: Sclerae are anicteric. Pupils are equal, reactive to light and accommodation. Extraocular movements were intact. Palpation of submandibular region did not reveal any significant lymphadenopathy. The carotids are palpable bilaterally. There are no bruits on auscultation. I did not appreciate any jugular venous distention. There no thyromegaly. LUNGS: Auscultation of both lung jean revealed them to be clear. There were no rales, wheezes or rhonchi. He had normal respiratory effort without use of accessory muscles. CARDIAC: Revealed him to be in a regular rhythm. S1, S2 appear to be normal. I did not appreciate any murmurs on exam. PMI did not appear to be markedly displaced on palpation. ABDOMEN: Soft and nontender. EXTREMITIES: Evaluation of both wrists revealed radial pulses that were equal in intensity. There is no evidence of cyanosis or clubbing. Evaluation of lower extremities did not reveal any significant peripheral edema. He had palpable posterior to be a pulses bilaterally. SKIN: I do not appreciate any rashes on examination today. LABORATORY AND IMAGING STUDIES: Obtained since admission include a white cell count of 7.7, hemoglobin of 15.3, and platelet count of 179. Sodium is 140, potassium is 3.5, creatinine was 1 and BUN was 12. A 12-lead EKG was obtained at the time of admission which revealed the patient to be in normal sinus rhythm. There were some subtle ST segment changes in the inferior leads with likely reciprocal changes in the precordial leads. Repeat EKG was also obtained which revealed some improvement in the precordial leads. A single view chest x-ray was obtained which revealed mild congestive heart failure, but no other acute processes. ASSESSMENT AND PLAN: 1. Acute coronary syndrome: The patient's EKG is suggestive of an inferior infarct. He does have elevated cardiac biomarkers in his clinical syndrome and it is consistent with this diagnosis. Based on his risk factors and the objective findings noted above, it was felt reasonable to take him to the catheterization lab in an urgent fashion. The patient has been started on heparin. He has received beta blockade, nitroglycerin and aspirin. I did describe the risks, benefits and alternatives of angiography to the patient and we will proceed immediately. He did sign a witnessed consent form. 2. Tobacco abuse. The patient was counseled regarding the need to discontinue tobacco. 3. Congestive heart failure: This is based on an element of pulmonary vascular congestion seen on his x-ray. Clinically, he is actually doing quite well. We will have an opportunity to evaluate his left ventricular systolic function and possibly even the left ventricular filling pressures. LEROY
[2017-02-01] MEDS ORDERED: METOPROLOL TARTRATE 25 MG TAB PO STA (16:30)
[2017-02-01] MEDS ORDERED: VALSARTAN 80 MG TAB PO ONE (16:45)
[2017-02-01] MEDS: LORAZEPAM 0.5 MG TAB PO PRN (17:09)
--- NOTE | 2017-02-01 17:21 | ECHOCARDIOGRAM REPORT ---
*NOTICE TO RECEIVING LIBERTARIAN AGENCY This information is strictly Confidential and protected under [place] law. [place] law prohibits you from making any further disclosure of this information unless further disclosure is expressly permitted by the written consent of the person to whom it pertains or is authorized by law. A general authorization for the release of medical or other information is not sufficient for this purpose. Hospital accepts no responsibility if the information is made available to any other person, INCLUDING THE PATIENT. Interpretation Summary * Name: DAVID MADRIGAL Study Date: 02/01/2017 03:11 PM BP: 134/96 mmHg * Patient Location: .MSICU\S\E107\S\1 HR: 72 * : 1960 (M/d/yyyy) Gender: Male Height: 68 in * Age: 56 yrs Ethnicity: CA Weight: 230 lb * Ordering Physician: Edgard Kurtz * Referring Physician: Self, Referred * Performed By: Mitzi Herrera RCS * * Reason For Study: AMI / HEART ALERT * BSA: 2.2 m2 * Moderate - severe left ventricular systolic dysfunction. * Inferior,posterior,posterolateral severe hypokinesis to akinesis. * Moderate concentric left ventricular hypertrophy. * Left ventricular diastolic dysfunction. * Borderline left atrial dilatation. * Mild aortic root dilatation. * Trace aortic regurgitation. * MIld mitral regurgitation. * Probable elevated central venous pressure. * -- Conclusions -- * Aortic valve sclerosis mild, without significant aortic valvular stenosis. Procedure Details * A complete two-dimensional transthoracic echocardiogram was performed (2D, M-mode, Doppler and color flow Doppler). Left Ventricle * The left ventricle is normal in size. * There is moderate concentric left ventricular hypertrophy. * Ejection Fraction = 30-35%. * Left ventricular systolic function is moderate to severely reduced. * Diastolic dysfunction, Grade II (pseudonormalization pattern). * There is posterior wall akinesis. * There is severe inferior wall hypokinesis. Right Ventricle * The right ventricle is normal in size and function. Atria * Borderline left atrial enlargement. * Right atrial size is normal. * No ASD detected; PFO is not assessed. Mitral Valve * The mitral valve is normal. * There is no mitral valve stenosis. * There is mild mitral regurgitation. Tricuspid Valve * The tricuspid valve is not well visualized. * Significant tricuspid regurgitation is absent. Aortic Valve * The aortic valve is trileaflet. * The aortic valve opens well. * Aortic valve sclerosis mild, without significant aortic valvular stenosis. * Aortic stenosis is absent. * Trace aortic regurgitation. Pulmonic Valve * The pulmonic valve is not well seen, but is grossly normal. * There is no pulmonic valvular stenosis. * There is no pulmonic valvular regurgitation. Great Vessels * Mild aortic root dilatation. Pericardium/Pleural * There is no pericardial effusion. Great Vessels * The inferior vena cava is mildly dilated. MMode 2D Measurements and Calculations IVSd 1.6 cm IVSs 2.3 cm LVIDd 6.2 cm LVIDs 5.3 cm LVPWd 1.5 cm LVPWs 1.5 cm IVS/LVPW 1.1 FS 15.1 % EDV(Teich) 193.2 ml ESV(Teich) 132.5 ml EF(Teich) 31.4 % EDV(cubed) 237.0 ml ESV(cubed) 144.8 ml EF(cubed) 38.9 % % IVS thick 36.5 % % LVPW thick 0.18 % LV mass(C)d 481.4 grams LV mass(C)dI 221.9 grams/m\S\2 LV mass(C)s 488.3 grams LV mass(C)sI 225.1 grams/m\S\2 SV(Teich) 60.7 ml SI(Teich) 28.0 ml/m\S\2 SV(cubed) 92.2 ml SI(cubed) 42.5 ml/m\S\2 Ao root diam 4.3 cm Ao root area 14.5 cm\S\2 LA dimension 3.9 cm LA/Ao 0.90 LVOT diam 2.0 cm LVOT area 3.3 cm\S\2 LVAd ap4 56.2 cm\S\2 LVLd ap4 10.0 cm EDV(MOD-sp4) 250.8 ml EDV(sp4-el) 267.8 ml LVAs ap4 44.8 cm\S\2 LVLs ap4 9.4 cm ESV(MOD-sp4) 174.2 ml ESV(sp4-el) 182.3 ml EF(MOD-sp4) 30.6 % EF(sp4-el) 31.9 % LVAd ap2 59.5 cm\S\2 LVLd ap2 10.3 cm EDV(MOD-sp2) 281.1 ml EDV(sp2-el) 292.7 ml LVAs ap2 50.6 cm\S\2 LVLs ap2 9.7 cm ESV(MOD-sp2) 216.2 ml ESV(sp2-el) 223.2 ml EF(MOD-sp2) 23.1 % EF(sp2-el) 23.7 % LVLd %diff 2.5 % EDV(MOD-bp) 267.3 ml LVLs %diff 3.8 % ESV(MOD-bp) 199.0 ml EF(MOD-bp) 25.5 % SV(MOD-sp4) 76.6 ml SI(MOD-sp4) 35.3 ml/m\S\2 SV(MOD-sp2) 64.9 ml SI(MOD-sp2) 29.9 ml/m\S\2 SV(MOD-bp) 68.3 ml SI(MOD-bp) 31.5 ml/m\S\2 SV(sp4-el) 85.5 ml SI(sp4-el) 39.4 ml/m\S\2 SV(sp2-el) 69.5 ml SI(sp2-el) 32.0 ml/m\S\2 Doppler Measurements and Calculations MV E max quiana 82.2 cm/sec MV A max quiana 34.3 cm/sec MV E/A 2.4 MV P1/2t max quiana 77.0 cm/sec MV P1/2t 75.1 msec MVA(P1/2t) 2.9 cm\S\2 MV dec slope 300.5 cm/sec\S\2 MV dec time 0.19 sec Ao V2 max 89.9 cm/sec Ao max PG 3.2 mmHg Ao max PG (full) 1.9 mmHg KIA(V,A) 2.1 cm\S\2 KIA(V,D) 2.1 cm\S\2 LV V1 max PG 1.3 mmHg LV V1 max 57.9 cm/sec PA V2 max 49.1 cm/sec PA max PG 0.96 mmHg
--- NOTE | 2017-02-01 17:22 | Cardiac Catheterization ---
Procedure Note Procedure Date February 01, 2017. Pre-Procedure Diagnosis STEMI AUC Score 9 Post-Procedure Diagnosis Severe CAD, Successful PCI, Decreased LV Systolic Function, Elevated Intracardiac Pressures Procedure(s) Performed Coronary Angiography, Left Heart Cath, LV Angiography, PTCA, Bare Metal Stent Field Sampling Technician Dr. Kurtz Insurance Underwriter Sales(s) Melonie Cantu,RAMIRO Estimated Blood Loss 55 ml Medication(s) Atropine, Fentanyl, Heparin, Integrilin, Nicardipine (intra-arterial and intracoronary), Versed, Lidocaine 1% Ticagrelor 180 mg PO post PCI Summary of Findings Clinical indications: Acute inferolateral myocardial infarction. Catheterization site: 6 Norwegian glide sheath slender right radial artery. Equipment: 6 Norwegian brachial 3.5 diagnostic catheter, 6 Norwegian EBU 3.75 guide catheter, 6 Norwegian EBU 4.0 guide catheter, [employer] Helton XT J-TIP guidewire, Patel Trek 3 x 15 millimeter balloon dilatation catheter, Patel Ultra Rx 4.5 x 18 millimeter bare metal stent, [employer] Integrity over the wire 4 x 9 millimeter bare metal stent, [employer] Euphora 5 x 15 millimeter balloon dilatation catheter, 6 Norwegian pigtail diagnostic catheter. Protocol: Right and left coronary angiography was 1st performed the brachial 3.5 diagnostic catheter. This revealed a subtotal mid left circumflex occlusion. MARY 2 flow into the distal left circumflex. It was then attempted to cannulate the left coronary artery with the 6 Norwegian EBU 3.75 guide catheter. This catheter would repeatedly disengage from the left main. It was exchanged for the 6 Norwegian EBU 4.0 guide catheter. Total of 7 balloon inflations were then performed to the mid left circumflex with the Trek balloon to a maximum inflation pressure of 14 atmospheres and a maximum duration of 15 seconds. The Ultra Rx 4.5 x 18 millimeter stent was then deployed in the mid circumflex. It was deployed initially at a pressure of 10 atmospheres for 45 seconds. The stent delivery balloon was reinflated to a pressure of 14 atmospheres for a duration of 20 seconds. An Integrity 4 x 9 millimeter stent was then deployed distal to the 1st stent in an overlapping fashion. Deployed at 15 atmospheres for 45 seconds. Entire stented region was then post dilated with the noncompliant balloon. A total of 4 balloon inflations were performed to a maximum pressure of 20 atmospheres and a maximum duration of 20 seconds. Follow-up angiography was then performed with the guidewire in place and then guidewire withdrawn. Performed from orthogonal projections. Left heart catheterization and left ventricular angiography were then performed from the 30 degree right anterior oblique projection using a hand injection of contrast dye. Prior to intervention the patient was given intravenous heparin and Integrilin. A therapeutic activated clotting time was documented. Following reperfusion of the left circumflex he developed sinus bradycardia and junctional bradycardia. He was given 0.5 milligrams of intravenous atropine. He was given a bolus of normal saline. Following the administration of the atropine the heart rate ely and he returned to sinus rhythm. No significant ventricular arrhythmias. Occasional premature ventricular beats. Following reperfusion of the left circumflex his chest discomfort resolved. Hemostasis: Terumo TR band. Complications: None. Findings: Fluoroscopy revealed coronary calcifications. The coronary circulation was right dominant. The left main coronary artery was a short , very large caliber vessel giving rise to large caliber left anterior descending and left circumflex coronary arteries. The left main had no obstructive disease. The very proximal left circumflex gave rise to a long small caliber bifurcating ramus type branch. This vessel had minor luminal irregularities with 0-10 percent luminal diameter narrowing. The proximal left circumflex had mild atherosclerotic disease with 10-20 percent luminal diameter narrowing. The early mid circumflex had a 30-40 percent eccentric stenosis. This was then followed by a subtotal occlusion. There was faint visualization of an aneurysmal segment just past the site of the subtotal occlusion. MARY 2 flow into the distal left circumflex. MARY 1 flow into a left circumflex marginal arising from the mid circumflex. Following balloon angioplasty MARY 3 flow was established into the left circumflex marginal as well as the distal left circumflex. The aneurysmal segment in the mid circumflex was well visualized. 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 There was pooling of contrast inside of the aneurysmal segment. Just prior to the aneurysm there was a residual 75 - 80 percent stenosis. Following deployment of the 2 stents and post stent high- pressure noncompliant balloon inflations the residual stenosis in the mid circumflex at the site of the stents was 0-10 percent. Immediately following the stent there was the aneurysmal segment. There continued to be pooling of contrast inside of the aneurysmal segment. Just after the aneurysmal segment the circumflex gave rise to a long bifurcating small to medium caliber marginal artery which had minor mid and distal luminal irregularities with 0-10 percent narrowing. Following the marginal the circumflex continued on in the atrioventricular groove as a small caliber vessel. Distal circumflex gave rise to a very small caliber posterolateral artery. This vessel had mild atherosclerotic disease. The distal circumflex following the origin of the bifurcating marginal had a 30 percent stenosis. The very distal circumflex gave rise to a left atrial branch. Following stent deployment there was no conclusive evidence of dissection , residual thrombus, perforation, or a distal embolic event. The proximal LAD had minor irregularities with 0-20 percent luminal diameter narrowing. The LAD then gave rise to a long small caliber 1st diagonal artery which had a 90 percent proximal stenosis. MARY 2 flow into the diagonal. Following the diagonal the early mid LAD had sequential eccentric 50 percent stenoses. The mid LAD gave rise to very small caliber 2nd and 3rd diagonal arteries. Remainder of the mid and distal LAD had diffuse mild atherosclerotic disease with 10-20 percent luminal diameter narrowing. The distal LAD terminated at the apex of the left ventricle as a small caliber vessel. The right coronary artery was a medium caliber vessel. Proximal 20 percent stenosis. The mid segment had an eccentric 50 percent stenosis. Following the origin of a prominent right ventricular branch the latter mid RCA had an eccentric 50 percent stenosis. The distal RCA had minor luminal irregularities. Distal RCA gave rise to a prominent and long small caliber acute marginal artery, a long small caliber posterior descending artery, and a long small caliber posterolateral artery. These vessels had minor luminal irregularities. Left ventricular angiography performed from the 30 degree right anterior oblique projection revealed the diaphragmatic segment to be akinetic. Posterobasal segment was poorly visualized. The apex and anterolateral segments appeared hypokinetic. The anterobasal segments contracted normally. Estimated left ventricular ejection fraction 35 percent. No mitral regurgitation was visualized. Plan: The patient was given a loading dose of ticagrelor 180 milligrams post PCI. He should remain on dual antiplatelet therapy for at least 1 year. Aspirin therapy indefinitely. He will be maintained on losartan therapy. Beta- eli and statin therapy will be started. Will remain on intravenous Integrilin for 18 hours. Serial electrocardiograms, cardiac enzymes, and labs. Referral to smoking cessation therapy. Echocardiogram to further assess left ventricular systolic function and wall motion. At this time would recommend medical management of his residual coronary artery disease. The patient will require cardiology follow-up on a return to his home town. Patient is currently visiting the [facility]. Recommendations Medical therapy and/or Counseling, PCI without planned CABG Specimens None Fluids (cc crystalloids) 500 Drains none Anesthesia IV versed,fentanyl. Lidocaine 1% local Procedural Complication(s) None Disposition ICU ACC Data Cardiac Status Clinical evaluation leading to the procedure CAD Presntation: STEMI STEMI or Non-STEMI: Thrombolytics: No Anginal Classification: CCS IV Heart Failure: No Cardiogenic Shock w/in 24Hrs: No Cardiac Arrest w/in 24Hrs: No Imaging studies past 6 months: No Stress studies past 6 months: No Standard Exercise Stress Test: No Stress Echocardiogram: No Stress Testing w/SPECT MPI: No Cardiac CTA: No Coronary Anatomy Dominant: Right Left Main (% Stenosis): Normal LAD (% Stenosis): Proximal (0-20), Mid (50,50,10-20), Distal (10-20) D1 (% Stenosis): Proximal (90) D2 (% Stenosis): Normal D3 (% Stenosis): Normal Circumflex (% Stenosis): Proximal (10-20), Mid (30-40,99), Distal (30) OM1 (% Stenosis): Mid (0-10), Distal (0-10) L PL1 (% Stenosis): Normal RCA (% Stenosis): Proximal (20), Mid (50,50), Distal (0-10) R PDA (% Stenosis): Proximal (0-10), Mid (0-10) R PL1 (% Stenosis): Proximal (0-10), Mid (0-10) AM (% Stenosis): Proximal (0-10), Mid (0-10) Grafts - Ramus (%): Proximal (0-10), Mid (0-10) Left Ventricular Angiography EF (%): 35 Wall Motion: Inferior (Akinetic), Apical (Hypokinetic), Anterior (Hypokinetic) Mitral Regurgitation: None Diagnostic Physician's Name: Edgard Kurtz M.D. Status: Emergency Closure Device Percutaneous Entry Location: Radial Closure Device: Radial Band Recommendations: Medical therapy and/or Counseling, PCI without planned CABG PCI Indication: Immediate PCI for STEMI First Noted: Subsequent EKG Lesion Segment Name: Mid left circumflex Culprit Artery: Yes Stenosis Prior to Rx (%): 99 Chronic Total Occlusion: No IVUS: No FFR: No Pre-Procedure MARY Flow: 2 Previously Treated Lesion: No Lesion Complexity: High/C Lesion Length (mm): 25 Thrombus Present: Yes Bifurcation Lesion: No Guidewire Across Lesion: Yes Guidewire: Stenosis Post-Procedure (%): 0-10 Post-Procedure MARY Flow: 3 Device(s) Deployed: Yes Type of Device(s): [employer] Ultra 4.5 X 18 mm BMS, Myndnet Integrity 4 X 9 mm BMS. All stented region post dilated with 5 X 15 mm NC balloon. Intraprocedure Events Significant Dissection: No Perforation: No
[2017-02-01] MEDS: MoRPHine SULFATE 2 MG/ML CARP IV PRN (19:25)
[2017-02-01 20:04] LABS: CKMB/CK RATIO 12.1 (0-3.0)
[2017-02-01] MEDS: METOPROLOL TARTRATE 25 MG TAB PO SCH (21:30)
[2017-02-01] MEDS: TICAGRELOR 90 MG TAB PO SCH (21:30)
[2017-02-02] VITALS (15 sets, daily range): BP systolic 105–129; BP diastolic 60–91; PULSE 56–92; TEMP 36.4–37; O2SAT 90–99
[2017-02-02] MEDS: EPTIFIBATIDE INJ 75 MG PREMIXED IV SCH (00:42)
[2017-02-02 03:14] LABS: MEAN CELL VOLUME 87.3 fL (80-100); MEAN CORPUSCULAR HEMOGLOBIN 29.7 pg (25-34); MEAN PLATELET VOLUME 11.1 fL (7.4-10.4); PLATELET COUNT 163 K/uL (130-400); RED BLOOD COUNT 4.81 M/uL (4.7-6.1); WHITE BLOOD COUNT 10.89 K/uL (4.8-10.8)
[2017-02-02 03:45] LABS: BUN/CREATININE RATIO 14.4 (10-20); CALCIUM 8.5 mg/dl (8.5-10.1); CREATININE 0.98 mg/dl (0.60-1.40); MAGNESIUM 2.2 mg/dl (1.8-2.4); POTASSIUM 3.8 mmol/L (3.5-5.1)
[2017-02-02] MEDS ORDERED: Integrelin infusion --> STOP ORDER ONE (04:00)
[2017-02-02 04:10] LABS: CKMB/CK RATIO 9.9 (0-3.0); PHOSPHORUS 4.5 mg/dl (2.5-4.9)
[2017-02-02] MEDS ORDERED: POTASSIUM CHLORIDE 10 MEQ TABCR PO STA (05:38)
[2017-02-02 06:01] LABS: ESTIMATED AVERAGE GLUCOSE 123 mg/dl; HA1C FLAG Normal (Normal)
[2017-02-02] MEDS: ATORVASTATIN 40 MG TAB PO SCH (07:58)
[2017-02-02] MEDS: ASPIRIN 81 MG ECTAB PO SCH (07:58)
[2017-02-02] MEDS: TICAGRELOR 90 MG TAB PO SCH ×2 (07:58→20:17)
[2017-02-02] MEDS: METOPROLOL TARTRATE 25 MG TAB PO SCH ×2 (07:58→20:17)
[2017-02-02] MEDS: PANTOprazole SOD 40 MG TAB PO SCH (07:58)
[2017-02-02] MEDS: VALSARTAN 80 MG TAB PO SCH (07:59)
--- NOTE | 2017-02-02 08:14 | DIAGNOSTIC IMAGING REPORT ---
CHEST ONE VIEW PORTABLE HISTORY: mild congestive failure, post-diuresis COMPARISON: Chest 02/01/2017. FINDINGS: Mild interstitial thickening is again noted. The heart remains mildly enlarged. No pleural effusions. No pneumothorax. IMPRESSION: No change in the mild cardiomegaly and interstitial thickening which may represent congestive change. Electronically signed by: Hola Dawson M.D. 02/02/2017 8:13 AM Dictated Date/Time: 02/02/2017 8:12 AM
[2017-02-02] MEDS ORDERED: VALSARTAN 80 MG TAB PO SCH ×3 (09:00)
[2017-02-02] MEDS ORDERED: PNEUMOCOCCAL POLYSACCHARIDES 25 MCG/0.5 ML VIAL/SYR IM. ONE (09:00)
[2017-02-02] MEDS ORDERED: FUROSEMIDE INJ 40 MG in SYRINGE 0 ML IV STA (09:07)
[2017-02-02] MEDS ORDERED: POTASSIUM CHLORIDE 20 MEQ TABCR PO ONE (09:15)
[2017-02-02] MEDS: SODIUM CHLORIDE 0.9% 1000ML 1,000 ML IV SCH (09:35)
--- NOTE | 2017-02-02 10:22 | Critical Care Progress Note ---
Critical Care Progress Note Date of Service February 02, 2017. ICU Day ICU Day Number: [address] Pennington Subjective Doing well at this time; very mild chest discomfort but no shortness of breath, palpitation, pre-syncope or leg swelling Some difficulty sleeping at night but attributes to being in the hospital No events on monitor overnight; Integrillin infusion discontinued No events overnight per nursing Objective Constitutional: Vital signs as above were reviewed. Eyes: Pupils equal, round, and reactive to light. Extraocular muscles are intact. No proptosis. No photophobia. ENT: Mucous membranes are moist. Oropharynx is clear. No sinus tenderness. TMs are clear bilaterally. Cardiovascular: Heart with a regular rate and rhythm. Pulses are palpable and symmetric in all 4 extremities. No pedal edema appreciated. Respiratory: Lungs clear to auscultation bilaterally. No wheezes, rales, or rhonchi appreciated. No accessory muscle use. No retractions. No increased work of breathing. GI: Abdomen soft, nontender, nondistended. Normal active bowel sounds. No abdominal hernias appreciated. No rebound. No guarding. : No CVA tenderness appreciated. Musculoskeletal: No midline cervical or vertebral tenderness. No gross deformities. No bony tenderness. No calf swelling or tenderness. Integumentary: Warm, dry, no rashes appreciated. Neurological: Patient awake, alert, and oriented x 3. Cranial nerves two through 12 grossly intact. Motor 5 out of 5 strength bilateral upper and lower extremities. CAM-ICU negative Lymph: No cervical lymphadenopathy appreciated. Current SOFA Score SOFA Score Response (Comments) Value Platelets (x10) > 150 0 Bilirubin (mg/dL) < 1.2 0 Dario Coma Score 15 0 Level of Hypotension No Hypotension 0 Creatinine (mg/dL) < 1.2 0 Total 0 Assessment & Plan (1) NSTEMI (non-ST elevated myocardial infarction) (2) Status post cardiac catheterization (3) Presence of stent in left circumflex coronary artery (4) Hypertension (5) Hyperlipidemia (6) Tobacco abuse NEUROLOGICAL - GCS 15; CAM-ICU negative; RASS 0 - Stable CARDIAC - BP: Maintaining MAPs 80-100 - No vasopressors or fluids Status post cardiac catheterization with stenting to left circumflex artery - Cardiology is been consulted, recommendations are appreciated - The patient has been started on appropriate secondary prevention medications ASA 81 mg daily, Metoprolol tartrate 25 mg twice a day, Atorvastatin 80 mg every morning, Valsartan 80 mg, Ticagrelor 90 mg by mouth twice a day - Pneumococcal vaccine today - Monitor troponin peak at 159, now downtrending; can repeat once with AM labs then stop if continues to decrease - Smoking cessation counseling has been ordered Systolic CHF - EF 30-35% - Will need repeat echo; per cardiology when this is to be done - 40 mg IV Lasix today with 80 mEq PO KCl Hypertension - Continue valsartan and start metoprolol Hypercholesterolemia - On atorvastatin - Per ACC/AHA guidelines, the patient is being treated for plaque stabilization and not results of lipid panel RESPIRATORY - RR: 16-20 Did require 4 L at nighttime Noted to have mild congestion on admission; EF above reduced; most likely 2/ 2 mild overload from reduced EF - Repeat CXR today; diuresis Does not have a home oxygen requirement, needs to be weaned down as tolerated to room air Chronic tobacco abuse - We will order smoking cessation education Pulmonary congestion on chest x-ray - Received 20 g IV Lasix prior to the ICU - Repeat chest x-ray in the morning GASTROINTESTINAL - Diet: Resume diet, AHA heart healthy, and low-sodium diet - GI Prophylaxis: Protonix 40 mg PO daily RENAL//ENDOCRINE - Monitor daily fluid balance Globally + 1.4 L Diuresis with 40 mg IV Lasix today - Cr stable at 0.98 - Electrolytes: No gross electrolyte abnormalities K repleted with total of 80 mEq KCL; will also counter hypokalemic effect of Lasix - IV Fluids: None, the patient is tolerating by mouth without difficulty - BSG: AC/HS checks HbA1c 5.9 HEMATOLOGY/INFECTIOUS DISEASE - Afebrile, WBC 10 - Hb/Hct stable at 14/42 - DVT Prophylaxis: Integrillin infusion stopped SCDs Start Lovenox 40 mg q AM CODE STATUS - Full Code - Patient designates his Janessa to be is substitute decision-maker if he cannot make decisions for himself DISPOSITION - OT/PT: Not indicated at this time, patient has good baseline and with her status, expect discharge home when medically stable - Stable for transfer to telemetry Resident Physician Supervision Note: Dr. Gustafson was resident physician during care of patient. I separately evaluated patient and did history and exam. I discussed the case with the resident and generally agree with the findings and plan. Stable for downgrade, no complaints during my evaluation. Documented By: Scot Pennington DO Consults & Procedures Consultants: Cardiology Procedures: s.p cardiac catheterization with stenting x 2 to left circumflex artery Data Medications: Current Inpatient Medications Medications (Trade) Dose Ordered Sig/Adrianna Route Start Time Stop Time Status Last Admin Dose Admin Sodium Chloride (Nss 1000ml) 1,000 ml @ 15 mls/hr Q24H IV 02/01/17 11:15 03/03/17 11:14 Atropine Sulfate (Atropine Sulfate 0.1MG/Ml Inj) 0.5 mg ONE PRN IV 02/01/17 11:15 03/03/17 11:14 Ondansetron HCl (Zofran Inj) 4 mg Q6H PRN IV 02/01/17 11:15 03/03/17 11:14 02/01/17 19:39 4 MG Aspirin (Ecotrin Tab) 81 mg QAM PO 02/02/17 09:00 03/04/17 08:59 02/02/17 07:58 81 MG Atorvastatin Calcium (Lipitor Tab) 80 mg QAM PO 02/02/17 09:00 03/04/17 08:59 02/02/17 07:58 80 MG Metoprolol Tartrate (Lopressor Tab) 25 mg Q12 PO 02/01/17 21:00 03/03/17 20:59 02/02/17 07:58 25 MG Acetaminophen (Tylenol Tab) 650 mg Q4H PRN PO 02/01/17 11:15 03/03/17 11:14 02/01/17 21:31 650 MG Morphine Sulfate 2 mg 2 mg Q5M PRN IV 02/01/17 11:15 02/15/17 11:14 02/01/17 19:25 2 MG Lorazepam/Syringe (Ativan Inj/ Syringe) 0.25 ml @ 1 mls/min Q6H PRN IV 02/01/17 11:15 03/03/17 11:14 Lorazepam (Ativan Tab) 0.5 mg Q6H PRN PO 02/01/17 11:15 03/03/17 11:14 02/01/17 17:09 0.5 MG Pantoprazole Sodium (Protonix Tab) 40 mg DAILY PO 02/02/17 09:00 03/04/17 08:59 02/02/17 07:58 40 MG Ticagrelor (Brilinta Cap) 90 mg BID PO 02/01/17 21:00 03/03/17 20:59 02/02/17 07:58 90 MG Lorazepam (Ativan Inj) 0.5 mg Q6H PRN IV 02/01/17 11:30 03/03/17 11:29 Valsartan (Diovan Tab) 80 mg DAILY PO 02/02/17 09:00 03/10/17 08:59 02/02/17 07:59 80 MG I & O: 24-Hour Column 02/02/17 07:59 Intake Total 2758 ml Output Total 1205 ml Balance 1553 ml Vital Signs: Date Time Temp Pulse Resp B/P Pulse Ox O2 Delivery O2 Flow Rate FiO2 02/02/17 10:00 81 21 118/84 91 Nasal Cannula 2.0 02/02/17 08:00 36.5 87 18 129/83 95 Nasal Cannula 2.0 02/02/17 08:00 Nasal Cannula 2.0 02/02/17 06:01 86 17 129/88 90 Nasal Cannula 2.0 02/02/17 05:01 73 19 114/60 96 Nasal Cannula 4.0 02/02/17 04:07 Nasal Cannula 4.0 02/02/17 04:01 36.7 74 16 125/91 94 Nasal Cannula 4.0 02/02/17 03:01 77 23 122/91 94 Nasal Cannula 4.0 02/02/17 02:01 77 15 126/89 95 Nasal Cannula 4.0 02/02/17 01:31 58 15 120/74 94 Nasal Cannula 4.0 02/02/17 01:01 58 16 117/80 93 Nasal Cannula 4.0 02/02/17 00:31 60 15 122/77 92 Nasal Cannula 4.0 02/02/17 00:01 36.4 56 15 115/74 92 Nasal Cannula 4.0 02/02/17 00:00 Nasal Cannula 4.0 02/01/17 22:04 61 17 116/88 92 02/01/17 22:01 79 20 116/88 91 02/01/17 22:00 65 18 92 02/01/17 21:31 75 15 138/92 94 02/01/17 21:30 77 16 93 02/01/17 21:30 36.8 70 22 138/92 94 Nasal Cannula 3.0 02/01/17 21:01 63 17 132/83 94 02/01/17 21:00 66 18 94 02/01/17 20:31 62 17 115/86 92 02/01/17 20:30 67 22 87 02/01/17 20:01 78 15 139/93 91 02/01/17 20:00 76 19 92 02/01/17 20:00 Nasal Cannula 3.0 02/01/17 19:31 98 18 142/111 97 02/01/17 19:30 112 22 97 02/01/17 19:20 90 24 153/108 95 02/01/17 19:01 75 20 157/113 93 02/01/17 19:00 78 16 94 02/01/17 18:31 74 22 142/97 93 02/01/17 18:30 74 19 95 02/01/17 18:01 71 16 138/93 95 02/01/17 18:00 70 15 96 02/01/17 17:31 68 17 149/104 95 02/01/17 17:30 76 27 96 02/01/17 17:01 79 15 145/100 96 02/01/17 17:00 75 17 98 02/01/17 16:32 69 16 149/113 96 02/01/17 16:30 62 15 95 02/01/17 16:01 63 15 124/96 94 02/01/17 16:00 78 20 94 02/01/17 15:46 78 17 128/96 95 02/01/17 15:31 64 20 138/81 97 02/01/17 15:30 66 20 98 02/01/17 15:30 Nasal Cannula 4.0 02/01/17 15:30 37.0 87 22 134/96 97 Nasal Cannula 4.0 02/01/17 15:16 78 18 134/96 97 02/01/17 15:01 76 22 162/115 96 02/01/17 15:00 63 10 96 02/01/17 14:06 80 21 134/96 98 Nasal Cannula 4.0 02/01/17 14:00 81 22 138/105 97 Nasal Cannula 4.0 02/01/17 13:06 80 21 134/96 98 Nasal Cannula 4.0 02/01/17 12:36 67 17 138/95 97 Nasal Cannula 4.0 02/01/17 12:06 93 19 141/110 96 Nasal Cannula 4.0 02/01/17 12:00 Nasal Cannula 4.0 02/01/17 12:00 93 19 141/110 96 Nasal Cannula 4.0 02/01/17 11:51 69 22 128/89 94 Nasal Cannula 4.0 02/01/17 11:36 76 17 125/92 92 Nasal Cannula 4.0 02/01/17 11:21 67 17 125/92 91 Nasal Cannula 4.0 02/01/17 11:21 90 Nasal Cannula 4.0 02/01/17 11:21 58 17 125/92 91 Nasal Cannula 4.0 02/01/17 11:00 68 16 142/88 96 Room Air 02/01/17 10:55 66 16 138/92 96 Room Air 02/01/17 10:45 66 16 134/97 96 Room Air Laboratory Results: Last 24 Hours Test 02/01/17 11:43 02/01/17 19:10 02/02/17 03:00 02/02/17 06:01 White Blood Count 9.76 K/uL 10.89 K/uL Red Blood Count 4.96 M/uL 4.81 M/uL Hemoglobin 14.6 g/dL 14.3 g/dL Hematocrit 43.1 % 42.0 % Mean Corpuscular Volume 86.9 fL 87.3 fL Mean Corpuscular Hemoglobin 29.4 pg 29.7 pg Mean Corpuscular Hemoglobin Concent 33.9 g/dl 34.0 g/dl Platelet Count 181 K/uL 163 K/uL Mean Platelet Volume 11.3 fL 11.1 fL Neutrophils (%) (Auto) 75.9 % Lymphocytes (%) (Auto) 19.9 % Monocytes (%) (Auto) 3.6 % Eosinophils (%) (Auto) 0.2 % Basophils (%) (Auto) 0.2 % Neutrophils # (Auto) 7.41 K/uL Lymphocytes # (Auto) 1.94 K/uL Monocytes # (Auto) 0.35 K/uL Eosinophils # (Auto) 0.02 K/uL Basophils # (Auto) 0.02 K/uL RDW Standard Deviation 42.8 fL 43.8 fL RDW Coefficient of Variation 13.5 % 13.6 % Immature Granulocyte % (Auto) 0.2 % Immature Granulocyte # (Auto) 0.02 K/uL Sodium Level 143 mmol/L 143 mmol/L Potassium Level 4.1 mmol/L 3.8 mmol/L Chloride Level 106 mmol/L 106 mmol/L Carbon Dioxide Level 31 mmol/L 32 mmol/L Anion Gap 6.0 mmol/L 5.0 mmol/L Blood Urea Nitrogen 10 mg/dl 14 mg/dl Creatinine 0.81 mg/dl 0.98 mg/dl Est Creatinine Clear Calc Drug Dose 119.4 ml/min 98.7 ml/min Estimated GFR () 115.1 99.5 Estimated GFR (Non- 99.4 85.8 BUN/Creatinine Ratio 12.3 14.4 Random Glucose 100 mg/dl 107 mg/dl Estimated Average Glucose 123 mg/dl Hemoglobin A1c 5.9 % Calcium Level 8.7 mg/dl 8.5 mg/dl Total Bilirubin 0.5 mg/dl Direct Bilirubin 0.1 mg/dl Aspartate Amino Transf (AST/SGOT) 430 U/L Alanine Aminotransferase (ALT/SGPT) 58 U/L Alkaline Phosphatase 92 U/L Total Creatine Kinase 3147 U/L 3443 U/L 2386 U/L Creatine Kinase MB 360.2 ng/ml 416.8 ng/ml 235.6 ng/ml Creatine Kinase MB Ratio 11.4 12.1 9.9 Troponin I 134.000 ng/ml 159.000 ng/ml 116.000 ng/ml Total Protein 7.3 gm/dl Albumin 3.8 gm/dl Triglycerides Level 87 mg/dl Cholesterol Level 248 mg/dl HDL Cholesterol 44 mg/dl LDL Cholesterol Direct 198 mg/dl LDL Cholesterol, Calculated mg/dl VLDL Cholesterol, Calculated 17 mg/dl Cholesterol/HDL Ratio 5.6 Phosphorus Level 4.5 mg/dl Magnesium Level 2.2 mg/dl Bedside Glucose 116 mg/dl
[2017-02-02] MEDS ORDERED: ENOXAPARIN 40 MG/0.4 ML SYR SQ ONE (10:35)
--- NOTE | 2017-02-02 16:11 | Progress Note ---
Subjective Date of Service: February 02, 2017. Subjective Pt evaluation today including: conversation w/ patient, physical exam, chart review, lab review, review of studies, review of inpatient medication list Pt resting comfortably in bed No acute events overnight No chest pain, shortness of breath, edema No concerns per pt Problem List Medical Problems: (1) Acute myocardial infarction Status: Acute Review of Systems Constitutional: No chills, No fever Eyes: No eye pain, No worsening of vision ENT: No hearing loss, No unusual epistaxis Respiratory: No cough, No dyspnea on exertion, No shortness of breath, No sputum, No wheezing Cardiac: No PND, No chest pain, No edema, No orthopnea Abdomen: No constipation, No diarrhea, No nausea, No pain, No vomiting Musculoskeletal: No joint pain, No muscle pain, No swelling Male : No dysuria, No incontinence, No urinary frequency Neurologic: No memory loss, No numbness/tingling, No paralysis, No weakness Psychiatric: No anhedonism, No anxiety, No depression symptoms Objective Vital Signs Date Time Temp Pulse Resp B/P Pulse Ox O2 Delivery O2 Flow Rate FiO2 02/02/17 12:00 Room Air 02/02/17 12:00 36.6 72 15 105/82 94 Room Air 02/02/17 10:00 81 21 118/84 91 Nasal Cannula 2.0 02/02/17 08:00 36.5 87 18 129/83 95 Nasal Cannula 2.0 02/02/17 08:00 Nasal Cannula 2.0 02/02/17 06:01 86 17 129/88 90 Nasal Cannula 2.0 02/02/17 05:01 73 19 114/60 96 Nasal Cannula 4.0 02/02/17 04:07 Nasal Cannula 4.0 02/02/17 04:01 36.7 74 16 125/91 94 Nasal Cannula 4.0 02/02/17 03:01 77 23 122/91 94 Nasal Cannula 4.0 02/02/17 02:01 77 15 126/89 95 Nasal Cannula 4.0 02/02/17 01:31 58 15 120/74 94 Nasal Cannula 4.0 02/02/17 01:01 58 16 117/80 93 Nasal Cannula 4.0 02/02/17 00:31 60 15 122/77 92 Nasal Cannula 4.0 02/02/17 00:01 36.4 56 15 115/74 92 Nasal Cannula 4.0 02/02/17 00:00 Nasal Cannula 4.0 02/01/17 22:04 61 17 116/88 92 02/01/17 22:01 79 20 116/88 91 02/01/17 22:00 65 18 92 02/01/17 21:31 75 15 138/92 94 02/01/17 21:30 77 16 93 02/01/17 21:30 36.8 70 22 138/92 94 Nasal Cannula 3.0 02/01/17 21:01 63 17 132/83 94 02/01/17 21:00 66 18 94 02/01/17 20:31 62 17 115/86 92 02/01/17 20:30 67 22 87 02/01/17 20:01 78 15 139/93 91 02/01/17 20:00 76 19 92 02/01/17 20:00 Nasal Cannula 3.0 02/01/17 19:31 98 18 142/111 97 02/01/17 19:30 112 22 97 02/01/17 19:20 90 24 153/108 95 02/01/17 19:01 75 20 157/113 93 02/01/17 19:00 78 16 94 02/01/17 18:31 74 22 142/97 93 02/01/17 18:30 74 19 95 02/01/17 18:01 71 16 138/93 95 02/01/17 18:00 70 15 96 02/01/17 17:31 68 17 149/104 95 02/01/17 17:30 76 27 96 02/01/17 17:01 79 15 145/100 96 02/01/17 17:00 75 17 98 02/01/17 16:32 69 16 149/113 96 02/01/17 16:30 62 15 95 02/01/17 16:01 63 15 124/96 94 02/01/17 16:00 78 20 94 Physical Exam General Appearance: WD/WN, no apparent distress Eyes: normal inspection, PERRL, EOMI Neck: supple, no adenopathy, thyroid normal, no JVD Respiratory/Chest: chest non-tender, lungs clear, normal breath sounds, no respiratory distress Cardiovascular: regular rate, rhythm, no edema, no gallop, no JVD, no murmur Abdomen: normal bowel sounds, non tender, soft, no organomegaly Extremities: normal range of motion, non-tender, normal inspection, no pedal edema 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, no motor/sensory deficits, alert, normal mood/affect, oriented x 3 Skin: normal color, warm/dry, no rash Laboratory Results Last 24 Hours Test 02/01/17 19:10 02/02/17 03:00 02/02/17 06:01 02/02/17 11:21 Total Creatine Kinase 3443 U/L 2386 U/L Creatine Kinase MB 416.8 ng/ml 235.6 ng/ml Creatine Kinase MB Ratio 12.1 9.9 Troponin I 159.000 ng/ml 116.000 ng/ml White Blood Count 10.89 K/uL Red Blood Count 4.81 M/uL Hemoglobin 14.3 g/dL Hematocrit 42.0 % Mean Corpuscular Volume 87.3 fL Mean Corpuscular Hemoglobin 29.7 pg Mean Corpuscular Hemoglobin Concent 34.0 g/dl RDW Standard Deviation 43.8 fL RDW Coefficient of Variation 13.6 % Platelet Count 163 K/uL Mean Platelet Volume 11.1 fL Sodium Level 143 mmol/L Potassium Level 3.8 mmol/L Chloride Level 106 mmol/L Carbon Dioxide Level 32 mmol/L Anion Gap 5.0 mmol/L Blood Urea Nitrogen 14 mg/dl Creatinine 0.98 mg/dl Est Creatinine Clear Calc Drug Dose 98.7 ml/min Estimated GFR () 99.5 Estimated GFR (Non- 85.8 BUN/Creatinine Ratio 14.4 Random Glucose 107 mg/dl Calcium Level 8.5 mg/dl Phosphorus Level 4.5 mg/dl Magnesium Level 2.2 mg/dl Bedside Glucose 116 mg/dl 116 mg/dl Assessment and Plan 56 yo M with PMHx of hypertension, hyperlipidemia, and diverticulitis, and now s/p cardiac cath with stenting to the LCA on 02/02/16 for NSTEMI. Status post cardiac catheterization with stenting to left circumflex artery for NSTEMI - No further chest pain, shortness of breath, edema, transfer to [facility] from ICU, off integrilin drip - Cont ASA 81 mg daily, metoprolol tartrate 25 mg twice a day, atorvastatin 80 mg daily, valsartan 80 mg daily, brillinta 90 mg twice a day - Will nee dual antiplatelet therapy for 1 yr, appreciate cardiology recommendations - Troponin peaked at 159, trending downwards - Smoking cessation provided at bedside, patient is agreeable to nicotine patch 7 mg apply daily Hypertension - Continue valsartan and cont metoprolol, stable at this time Hypercholesterolemia - Start atorvastatin 80 mg qd DVT ppx: teds, scds, ticagrelor CODE STATUS: FULL CODE
[2017-02-02] MEDS: NICOTINE 7 MG/24 HR TDSY TD SCH (16:51)
[2017-02-02] MEDS: LORAZEPAM 0.5 MG TAB PO PRN (18:31)
[2017-02-02] MEDS: MoRPHine SULFATE 2 MG/ML CARP IV PRN (20:21)
[2017-02-03 03:44] VITALS: BP 120/84; PULSE 69; TEMP 36.4; O2SAT 94
[2017-02-03 07:58] VITALS: BP 118/65; PULSE 66; TEMP 36.5; O2SAT 98
[2017-02-03 08:07] LABS: HEMATOCRIT 41.3 % (42-52); MEAN CELL VOLUME 87.1 fL (80-100); MEAN CORPUSCULAR HEMOGLOBIN 29.3 pg (25-34); MEAN CORPUSCULAR HGB CONC 33.7 g/dl (32-36); MEAN PLATELET VOLUME 11.3 fL (7.4-10.4); PLATELET COUNT 148 K/uL (130-400); RED BLOOD COUNT 4.74 M/uL (4.7-6.1); WHITE BLOOD COUNT 8.77 K/uL (4.8-10.8)
[2017-02-03 08:36] LABS: BUN/CREATININE RATIO 20.1 (10-20); CREATININE 0.72 mg/dl (0.60-1.40); POTASSIUM 3.9 mmol/L (3.5-5.1)
[2017-02-03] MEDS: ASPIRIN 81 MG ECTAB PO SCH (09:00)
[2017-02-03] MEDS: PANTOprazole SOD 40 MG TAB PO SCH (09:00)
[2017-02-03] MEDS ORDERED: ENOXAPARIN 40 MG/0.4 ML SYR SQ SCH (09:00)
[2017-02-03] MEDS: NICOTINE 7 MG/24 HR TDSY TD SCH (09:00)
[2017-02-03] MEDS: VALSARTAN 80 MG TAB PO SCH (09:00)
[2017-02-03] MEDS: ATORVASTATIN 40 MG TAB PO SCH (09:00)
[2017-02-03] MEDS: TICAGRELOR 90 MG TAB PO SCH (09:00)
[2017-02-03] MEDS ORDERED: METOPROLOL SUCC 50MG EXT REL TAB PO SCH (10:00)
[2017-02-03 10:17] LABS: CALCIUM 10.1 mg/dl (8.5-10.1)
--- NOTE | 2017-02-03 10:26 | CARDIOLOGY PROGRESS NOTE ---
DATE: 02/03/2017 DATE: 02/03/2017. SUBJECTIVE: The patient was seen by me this morning in his telemetry unit room. He states he is feeling very well. He was transferred from the ICU to telemetry yesterday. He has walked around the bull in the telemetry unit multiple times. No chest pain or other anginal type pains. He states he feels much better now than prior to admission. No dyspnea at rest or with walking in the bull. No orthopnea or PND. No palpitations, lightheadedness, syncope, or peripheral edema. No calf pain. No abdominal pain or nausea. No pulmonary, GI, or urinary complaints. No fevers or chills. No skin rash complaints. No unusual myalgias or muscle weakness. No bleeding complaints. Mild discomfort at his right radial catheterization site. No pain or symptoms in his right hand. MEDICATIONS: This morning included enoxaparin 40 mg subQ daily a.m., nicotine patch 1 patch daily (7 mg patch), aspirin 81 mg daily, atorvastatin 80 mg daily, pantoprazole 40 mg daily, valsartan 80 mg daily, metoprolol tartrate 25 mg b.i.d., ticagrelor 90 mg b.i.d., and several p.r.n. medications. ALLERGIES AND ADVERSE DRUG REACTIONS: PENICILLINS. PHYSICAL EXAMINATION: VITAL SIGNS: Oral temperature 36.5, pulse 66, blood pressure 118/65, pulse oximetry room air 98%. GENERAL APPEARANCE: Shows him to be in no distress. NECK: No jugular venous distension. Carotids 2/2 bilaterally. Normal upstroke. No bruits. LUNGS: Normal respiratory effort. Clear. No rales or wheezes. HEART: Regular rate and rhythm. S1, S2 normal. No S3 or S4. No murmur or rub. ABDOMEN: Soft. Nontender. No palpable masses or organomegaly. No bruits. Normal bowel sounds. EXTREMITIES: Right radial catheterization site without bleeding, hematoma. Right radial pulse strongly palpable. No evidence of arterial insufficiency in the right hand. No calf tenderness. No pretibial edema. PULSES: Distal pulses in all extremities palpable. NEUROLOGIC: Alert and oriented x3. Motor grossly intact. PSYCHIATRIC: Affect is normal. LABORATORY DATA: Labs today with sodium 139, potassium 3.9, chloride 106, carbon dioxide 26, BUN 15, creatinine 0.72, random glucose 98. CBC today with WBC 8.77, hemoglobin 13.9, hematocrit 41.3, platelet count 148. Electrocardiogram today with normal sinus rhythm, voltage for LVH, ST depressions and T-wave inversions in the lateral leads consistent with ischemia. ASSESSMENT: 1. Status post acute inferolateral myocardial infarction 02/01/2017. The patient had a subtotal mid left circumflex occlusion on diagnostic angiography. Subsequent successful intervention to the left circumflex occlusion with deployment of 4.5 x 18 mm and 4.0 x 9 mm bare metal stents. All stents post-dilated with a 5 mm diameter noncompliant balloon. Residual stenosis at the stent site 0-10%. 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 MARY 3 flow into the left circumflex following intervention. No coronary, cardiac, or vascular complications post-intervention. 2. Mild congestive heart failure immediately post-intervention. Resolution with intravenous furosemide. This would have been acute combined systolic and diastolic heart failure. No current signs or symptoms of congestive heart failure. No post-infarct angina. No post-infarct significant ventricular arrhythmias within the 1st 36 hours. 3. No vascular complications post-PCI. 4. Stable renal function. 5. Relatively stable hemoglobin. Slight decrease from February 01. On February 01 was 14.6. Today it is 13.9. 6. No symptoms of adverse reactions to current medications. 7. Peak troponin I 159.000. Peak CK total 3443. Peak CK-MB 416.8. 8. Dyslipidemia. Lipid profile on February 01 with triglycerides 87, total cholesterol 248, direct LDL 198, HDL 44. 9. Hemoglobin A1c 5.9. ADDENDUM: 1. Monitor history this morning revealed that he had at 10 beat run of nonsustained ventricular tachycardia versus accelerated ventricular rhythm. Ventricular rate 110 beats per minute. This was asymptomatic. This has occurred within 48 hours of the coronary intervention. 2. Moderate left ventricular systolic dysfunction on echo and LV angiography. Echocardiogram February 01 with LV ejection fraction 35%. Moderate concentric LVH. Type II diastolic dysfunction. Posterior wall akinesis. Severe inferior wall hypokinesis. Mild mitral regurgitation. Trace aortic regurgitation. Mild aortic root dilatation. RECOMMENDATIONS: 1. Change metoprolol tartrate to metoprolol succinate ER 50 mg daily. First dose this morning. 2. Continue dual antiplatelet therapy with aspirin and ticagrelor. 3. Continue valsartan and maximum dose of atorvastatin. 4. Walk in the bull today. Continue to monitor rhythm. 5. If no significant ventricular arrhythmias. He could then be discharged home. 6. Copy chart for patient to take home with him. This would include copies of the echocardiogram and cardiac catheterization on CD. 7. Limited echocardiogram today with contrast. Reassess left ventricular wall motion and systolic function. The left ventricular ejection fraction would have implications regarding future therapy regarding ventricular arrhythmias. MTDD
[2017-02-03 11:00] LABS: MAGNESIUM 2.2 mg/dl (1.8-2.4)
[2017-02-03] MEDS: SODIUM CHLORIDE 0.9% 1000ML 1,000 ML IV SCH (11:15)
[2017-02-03 12:22] VITALS: BP 118/63; PULSE 79; TEMP 36.5; O2SAT 96
[2017-02-03] MEDS ORDERED: TPRSR50 PO (14:26)
[2017-02-03] MEDS ORDERED: BRL90 PO (14:26)
[2017-02-03] MEDS ORDERED: DVN80 PO (14:26)
[2017-02-03] MEDS ORDERED: LPT40 PO (14:26)
[2017-02-03] MEDS ORDERED: ASPEC81 PO (14:26)
--- NOTE | 2017-02-03 14:37 | Discharge Instructions ---
Discharge Instructions Date of Service February 03, 2017. Admission Reason for Admission: Acute Mi Discharge Discharge Diagnosis / Problem: acute MD, hypertension, hyperlipidemia, tobacco abuse Discharge Goals Goal(s): Improve function, Improve disease control, Learn about illness Activity Recommendations Activity Limitations: per Instructions/Follow-up section . Instructions / Follow-Up Instructions / Follow-Up follow post stent discharge instructions for activity recommendations Current Hospital Diet Patient's current hospital diet: AHA Diet (Heart Healthy) Discharge Diet Recommended Diet: AHA Diet (Heart Healthy) Pending Studies Studies pending at discharge: no Laboratory Results Hemoglobin A1c Test 02/01/17 11:43 Range/Units Estimated Average Glucose 123 mg/dl Hemoglobin A1c 5.9 H 4.5-5.6 % Lipid Panel Test 02/01/17 11:43 Range/Units Triglycerides Level 87 0-150 mg/dl Cholesterol Level 248 H 0-200 mg/dl HDL Cholesterol 44 mg/dl LDL Cholesterol Direct 198 mg/dl Cholesterol/HDL Ratio 5.6 LDL Cholesterol, Calculated mg/dl Medical Emergencies . Who to Call and When: Medical Emergencies: If at any time you feel your situation is an emergency, please call 911 immediately. . Non-Emergent Contact Non-Emergency issues call your: Primary Care Provider . Past History Medical & Surgical History: (1) Acute myocardial infarction (2) Tobacco abuse (3) NSTEMI (non-ST elevated myocardial infarction) (4) Hypertension (5) Hyperlipidemia (6) Presence of stent in left circumflex coronary artery . "Provider Documentation" section prepared by Moi Reynaga. . Ultrasound Specialist Recommendations Ultrasound Specialist Recommendations: follow up with cardiology VTE Core Measure Inpt VTE Proph given/why not?: Unfractionated heparin SQ
--- NOTE | 2017-02-03 15:01 | Discharge Summary ---
Discharge Summary Date of Service February 03, 2017. (Moi Reynaga CRNP) Discharge Summary Admission Date: February 01, 2017 at 11:00 Discharge Date: February 03, 2017 Discharge Disposition: Home Principal Diagnosis: acute myocardial infarction Problems/Secondary Diagnoses: hypertension hyperlipidemia tobacco abuse Procedures: Subtotal mid left circumflex occlusion on diagnostic angiography. Subsequent successful intervention to the left circumflex occlusion with deployment of 4.5 x 18 mm and 4.0 x 9 mm bare metal stents. Consultations: cardiology - Dr. Kurtz (Moi Reynaga CRNP) Problems/Secondary Diagnoses: acute systolic/diastolic CHF Procedures: echocardiogram: * -- Conclusions -- * Limited follow-up echo post SC: * 1. Severly dilated LV with borderline LVH. * 2. Moderate LV dysfunction. LVEF 35-40%. Akinetic posterior wall. Severely hypokinetic inferior, lateral wall. Moderate hypokinesis mid-apical anterior wall. * 3. Normal RV size and function. * 4. No LV thrombus. * 5. Compared with prior study on 02/01/2017: No significant changes. (Tonio Garcia MD) Medication Reconciliation New Medications: Aspirin (Aspirin EC Low Dose) 81 Mg Ectab 81 MG PO QAM, #30 TAB 0 Refills Atorvastatin (Atorvastatin Calcium) 40 Mg Tab 80 MG PO HS, #30 TAB 0 Refills Metoprolol Succinate (Metoprolol Succinate ER) 50 Mg Tabcr 50 MG PO QAM, #30 TAB 0 Refills Ticagrelor (Brilinta) 90 Mg Tab 90 MG PO BID, #60 TAB 0 Refills Valsartan (Diovan) 80 Mg Tab 80 MG PO DAILY, #30 TAB 0 Refills Continued Medications: Ibuprofen Tab (Advil) 200 Mg Tab 400 MG PO UD, TAB Naproxen (Naprosyn) 250 Mg Tab 250 MG PO UD, TAB Valsartan (Diovan) 80 Mg Tab 80 MG PO DAILY, TAB Discharge Exam Review of Systems: Constitutional: No fever, No chills, No sweats, No weight loss, No weakness , No fatigue, No problem reported ENT: No hearing loss, No unusual epistaxis, No nasal symptoms, No sore throat, No tinnitus, No dental problems, No trouble swallowing, No problem reported Respiratory: No cough, No sputum, No wheezing, No shortness of breath, No dyspnea on exertion, No dyspnea at rest, No hemoptysis, No problem reported Cardiovascular: No chest pain, No orthopnea, No PND, No edema, No claudication, No palpitations, No problem reported Abdomen: No pain, No nausea, No vomiting, No diarrhea, No constipation, No GI bleeding, No problem reported Musculoskeletal: No joint pain, No muscle pain, No swelling, No calf pain, No problem reported Genitourinary - Male: No hematuria, No dysuria, No urinary frequency, No urinary urgency, No urinary hesitancy, No urinary retention, No urinary incontinence, No penile discharge, No lesions, No impotence, No problem reported Endocrine: No fatigue, No excessive thirst, No excessive urination, No problem reported Integumentary: No rash, No itch, No new/changing skin lesions, No color change, No bleeding, No problem reported Physical Exam: General Appearance: no apparent distress Eyes: normal inspection Neck: supple Respiratory/Chest: chest non-tender, lungs clear, normal breath sounds Cardiovascular: regular rate, rhythm, no edema, no gallop, no murmur Abdomen / GI: normal bowel sounds, non tender, soft Extremities: normal inspection, no pedal edema Neurologic/Psychiatric: alert, oriented x 3 Skin: normal color, warm/dry, no rash (Moi Reynaga, NADIRA) Hospital Course 56 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 Presented to the ER with complaints of back pain. Found to have acute inferolateral myocardial infarction/NSTEMI and underwent an emergent heart catheterization of 02/01/17. Patient had a bare metal stent placed in the left circumflex. Patient was admitted to ICU post intervention and developed a mild congestive heart failure which was treated with IV furosemide. Thought to be a combined systolic/diastolic acute dysfunction. Patient was started on Brillinta, Toprol, ASA, Lipitor post intervention which have continued. Today patient denies chest pain or shortness of breath. He had a 10 beat run of VTACH and given it was within 48 hours of stent, he had a repeat ECHO today which showed an EF of 40 to 45%. EF was 35% on the . Toprol was increased to 50mg this morning. He ambulated in the halls with no further episodes of of VTACH or chest pain. He will be discharged home. He is not in the area and was given a copy of his records to take with him. We discussed smoking cessation and he has had a nicotine patch on since. Total Time Spent: Greater than 30 minutes This includes examination of the patient, discharge planning, medication reconciliation, and communication with other providers. (Moi Reynaga CRNP) Attending Attestation: Chart reviewed in detail. I agree with the chiang components of NADIRA Reynaga's discharge summary. Tonio Garcia MD (Tonio Garcia MD) Discharge Instructions Please refer to the electronic Patient Visit Report (Discharge Instructions) for additional information. (Moi Reynaga CRNP) Follow-Up he will need to call his PCP and get established with a biochemistry technician in his area. He was given his medical records. (Moi Reynaga CRNP)
[2017-02-03 15:15] VITALS: BP 118/63; PULSE 79; TEMP 36.5; O2SAT 96
[2017-02-03 15:25] VITALS: BP 141/91; TEMP 36.4; O2SAT 95
--- NOTE | 2017-02-03 18:50 | ECHOCARDIOGRAM REPORT ---
*NOTICE TO RECEIVING LIBERTARIAN AGENCY This information is strictly Confidential and protected under [place] law. [place] law prohibits you from making any further disclosure of this information unless further disclosure is expressly permitted by the written consent of the person to whom it pertains or is authorized by law. A general authorization for the release of medical or other information is not sufficient for this purpose. Hospital accepts no responsibility if the information is made available to any other person, INCLUDING THE PATIENT. Interpretation Summary * Name: DAVID MADRIGAL Study Date: 02/03/2017 11:32 AM BP: 118/65 mmHg * Patient Location: C.2T\S\E222\S\1 HR: 66 * : 1960 (M/d/yyyy) Gender: Male Height: 68 in * Age: 56 yrs Ethnicity: [place] Weight: 221 lb * Ordering Physician: Edgard Kurtz MD, [facility] * Performed By: Aurelia Ferguson * * Reason For Study: FOLLOW UP- AMI * BSA: 2.1 m2 * -- Conclusions -- * Limited follow-up echo post CT: * 1. Severly dilated LV with borderline LVH. * 2. Moderate LV dysfunction. LVEF 35-40%. Akinetic posterior wall. Severely hypokinetic inferior, lateral wall. Moderate hypokinesis mid-apical anterior wall. * 3. Normal RV size and function. * 4. No LV thrombus. * 5. Compared with prior study on 02/01/2017: No significant changes. Procedure Details * A contrast injection of Definity was performed to improve assessment of LV function. * Contrast was injected into an intravenous site in the left arm. * One vial of Definity ultrasound contrast was diluted in normal saline to a total volume of 10 ml. A total of '4' ml of solution was administered during imaging. * Lot # [id number] of Definity utilized for procedure. * Expiration date 02/26. * The attending nurse who injected the contrast agent was GREGG SMITH RN. Left Ventricle * The left ventricle is severely dilated. * There is no thrombus. * There is borderline concentric left ventricular hypertrophy. * Ejection Fraction = 35-40%. * There is posterior wall akinesis. * There is severe inferior wall hypokinesis. * There is severe lateral wall hypokinesis. * Mid to apical anterior moderate hypokinesis. Right Ventricle * The right ventricle is grossly normal size. * The right ventricular systolic function is normal. MMode 2D Measurements and Calculations IVSd 1.4 cm IVSs 2.6 cm LVIDd 5.5 cm LVIDs 4.3 cm LVPWd 1.1 cm LVPWs 1.6 cm IVS/LVPW 1.3 FS 22.8 % EDV(Teich) 150.3 ml ESV(Teich) 82.2 ml EF(Teich) 45.3 % EDV(cubed) 170.6 ml ESV(cubed) 78.4 ml EF(cubed) 54.0 % % IVS thick 84.1 % % LVPW thick 48.4 % LV mass(C)d 283.2 grams LV mass(C)dI 132.8 grams/m\S\2 LV mass(C)s 429.1 grams LV mass(C)sI 201.2 grams/m\S\2 SV(Teich) 68.1 ml SI(Teich) 31.9 ml/m\S\2 SV(cubed) 92.2 ml SI(cubed) 43.2 ml/m\S\2 LVAd ap4 61.5 cm\S\2 LVLd ap4 11.0 cm EDV(MOD-sp4) 272.8 ml EDV(sp4-el) 290.6 ml LVAs ap4 43.5 cm\S\2 LVLs ap4 9.8 cm ESV(MOD-sp4) 154.9 ml ESV(sp4-el) 164.4 ml EF(MOD-sp4) 43.2 % EF(sp4-el) 43.4 % LVAd ap2 61.9 cm\S\2 LVLd ap2 10.8 cm EDV(MOD-sp2) 288.9 ml EDV(sp2-el) 302.9 ml LVAs ap2 45.6 cm\S\2 LVLs ap2 10.2 cm ESV(MOD-sp2) 171.8 ml ESV(sp2-el) 172.6 ml EF(MOD-sp2) 40.5 % EF(sp2-el) 43.0 % LVLd %diff -2.70 % EDV(MOD-bp) 285.5 ml LVLs %diff 4.5 % ESV(MOD-bp) 164.3 ml EF(MOD-bp) 42.5 % SV(MOD-sp4) 117.9 ml SI(MOD-sp4) 55.3 ml/m\S\2 SV(MOD-sp2) 117.1 ml SI(MOD-sp2) 54.9 ml/m\S\2 SV(MOD-bp) 121.2 ml SI(MOD-bp) 56.9 ml/m\S\2 SV(sp4-el) 126.2 ml SI(sp4-el) 59.2 ml/m\S\2 SV(sp2-el) 130.3 ml SI(sp2-el) 61.1 ml/m\S\2
== END 2017-02-03 15:58 | disposition home or self-care (01) | DRG 248 ==
LOC: ENRESERVDT → ENRESERVTM → C.EDB 07:35 → C.MSICU 09:06 → C.2T 02-02 12:29
PROVIDERS: ADMIT Internal Medicine Cardiovascular Disease; ATTEND Hospitalist
PROC: B2111ZZ Fluoroscopy of Multiple Coronary Arteries using Low Osmolar Contrast (ICD-10-PCS; principal; 2017-02-01 08:54)
PROC: B2151ZZ Fluoroscopy of Left Heart using Low Osmolar Contrast (ICD-10-PCS; principal; 2017-02-01 08:54)
PROC: 4A023N7 Measurement of Cardiac Sampling and Pressure, Left Heart, Percutaneous Approach (ICD-10-PCS; principal; 2017-02-01 08:54)
PROC: 02703EZ Dilation of Coronary Artery, One Artery with Two Intraluminal Devices, Percutaneous Approach (ICD-10-PCS; principal; 2017-02-01 08:54)
PROC: 3E053PZ Introduction of Platelet Inhibitor into Peripheral Artery, Percutaneous Approach (ICD-10-PCS; principal; 2017-02-01 08:54)
DX: I21.4 Non-ST elevation (NSTEMI) myocardial infarction (principal); I50.41 Acute combined systolic (congestive) and diastolic (congestive) heart failure; I25.10 Atherosclerotic heart disease of native coronary artery without angina pectoris; E78.5 Hyperlipidemia, unspecified; E78.00 Pure hypercholesterolemia, unspecified; I10 Essential (primary) hypertension; F17.210 Nicotine dependence, cigarettes, uncomplicated; Z87.19 Personal history of other diseases of the digestive system; Z79.899 Other long term (current) drug therapy; Z88.8 Allergy status to other drugs, medicaments and biological substances; Z88.0 Allergy status to penicillin; Z82.49 Family history of ischemic heart disease and other diseases of the circulatory system